=== PATIENT | female | born 1940 | race American Indian/Alaskan Native ===

== ENCOUNTER 2018-09-19 13:59 | Emergency (ER) | payer MEDICARE, OTHER ==
--- NOTE | 2018-09-19 14:13 | EDM.PDOC ---
ED HPI GENERAL MEDICAL PROBLEM - General Chief Complaint: ENT Problem Stated Complaint: SORES IN MOUTH Time Seen by Provider: 09/19/18 14:04 Source of Information: Reports: Patient History Limitations: Reports: No Limitations - History of Present Illness INITIAL COMMENTS - FREE TEXT/NARRATIVE: HISTORY AND PHYSICAL: History of present illness: Patient is a 78 old female who presents to the emergency room with complaints of oral sores. She states over the past 2 days she has experienced multiple sores along her tongue and bottom inner lip. She states she has had this in the past and received an oral mouthwash which did help "somewhat". She denies any fever, chills, chest pain, shortness of breath or cough. Denies any abdominal pain, nausea, vomiting, diarrhea or constipation. No rashes or open sores on the body. Review of systems: As per history of present illness and below otherwise all systems reviewed and negative. Past medical history: As per history of present illness and as reviewed below otherwise noncontributory. Surgical history: As per history of present illness and as reviewed below otherwise noncontributory. Social history: See social history for further information Family history: As per history of present illness and as reviewed below otherwise noncontributory. Physical exam: General: Well-developed and well-nourished 78 she'll female. Alert and oriented. Nontoxic appearing and in no acute distress. HEENT: Atraumatic, normocephalic, pupils equal and reactive bilaterally, negative for conjunctival pallor or scleral icterus, mucous membranes moist she does have small circular canker sore appearing lesions to the inner mouth and along the distal aspect of tongue, there are no lesions or open sores to the back of the throat, roof of the mouth or posterior tongue. TMs normal bilaterally, throat clear, neck supple, nontender, trachea midline. No drooling or trismus noted. No meningeal signs. No hot potato voice noted. Lungs: Clear to auscultation, breath sounds equal bilaterally, chest nontender. Heart: S1S2, regular rate and rhythm without overt murmur Abdomen: Soft, nondistended, nontender. Negative for masses or hepatosplenomegaly. Negative for costovertebral tenderness. Pelvis: Stable nontender. Genitourinary: Deferred. Rectal: Deferred. Skin: Intact, warm, dry. No lesions or rashes noted. Extremities: Atraumatic, moves all extremities per self without difficulty or deficits, negative for cords or calf pain. Neurovascular unremarkable. Neuro: Awake, alert, oriented. Cranial nerves II through XII unremarkable. Cerebellum unremarkable. Motor and sensory unremarkable throughout. Exam nonfocal. Diagnostics: None Therapeutics: NA Prescription: Chlorahexadin/Gluconate Rinse Miracle Mouthwash Acyclovir x 5 days Impression: Oral Canker Sores Plan: 1. Avoid any salty, sour or spicy foods that this can cause irritation and increased pain. 2. Please use the antibiotic rinse 3 times daily while having the oral lesions. You may use the miracle mouthwash for comfort, rinse and spit. 3. Please follow-up with your primary care provider on Saturday. Return to the ED as needed and as discussed. Definitive disposition and diagnosis as appropriate pending reevaluation and review of above. Oral/Mouth Pain Score (Numeric/FACES): 7 - Related Data Allergies Allergy/AdvReac Type Severity Reaction Status Date / Time amoxicillin [Amoxicillin] Allergy Swelling Verified 09/19/18 14:18 benzochlorozine Allergy Swollen Uncoded 09/19/18 14:18 Eyes Home Meds: Home Meds Spironolactone 50 mg PO DAILY 01/18/14 [History] Omeprazole 40 mg DAILY 10/11/14 [History] Aspirin [Adult Low Dose Aspirin EC] 81 mg PO DAILY 09/19/18 [History] Calcium Carbonate [Calcium] 1 tab DAILY 09/19/18 [History] Doxylamine Succinate [Unisom Sleep Aid] 50 mg PO DAILY 09/19/18 [History] Fluticasone/Vilanterol [Breo Ellipta 200-25 MCG Inhalation Kit] 1 inh BID [History] Krill/Om-3/DHA/EPA/Phospho/Ast [Megared [place]-3 Krill Oil Sfgl] 1 each PO DAILY 09/19/18 [History] Multivitamin [Multivitamins] 1 tab DAILY 09/19/18 [History] Tafluprost/Pf [Zioptan 0.0015% Eye Drops] 1 drop BEDTIME 09/19/18 [History] atorvaSTATin [Lipitor] 40 mg PO BEDTIME 09/19/18 [History] cycloSPORINE [Restasis] 1 drop BID 09/19/18 [History] ED ROS ENT - Review of Systems Review Of Systems: ROS reveals no pertinent complaints other than HPI. ED EXAM, ENT - Physical Exam Exam: See Below (See dictation) Course - Vital Signs Last Recorded V/S: Last Vital Signs Temp 96.0 F 09/19/18 14:16 Pulse 96 09/19/18 15:02 Resp 18 09/19/18 14:16 BP 114/78 09/19/18 14:16 Pulse Ox 96 09/19/18 15:02 Departure - Departure Time of Disposition: 16:48 Disposition: Home, Self-Care 01 Clinical Impression: Canethan nascimento oral - Discharge Information Instructions: Kleber Nascimento Referrals: Chioam Contreras NP [Primary Care Provider] - Forms: ED Department Discharge Additional Instructions: The following information is given to patients seen in the emergency department who are being discharged to home. This information is to outline your options for follow-up care. We provide all patients seen in our emergency department with a follow-up referral. The need for follow-up, as well as the timing and circumstances, are variable depending upon the specifics of your emergency department visit. If you don't have a primary care physician on staff, we will provide you with a referral. We always advise you to contact your personal physician following an emergency department visit to inform them of the circumstance of the visit and for follow-up with them and/or the need for any referrals to a consulting specialist. The emergency department will also refer you to a specialist when appropriate. This referral assures that you have the opportunity for follow-up care with a specialist. All of these measure are taken in an effort to provide you with optimal care, which includes your follow-up. Under all circumstances we always encourage you to contact your private physician who remains a resource for coordinating your care. When calling for follow-up care, please make the office aware that this follow-up is from your recent emergency room visit. If for any reason you are refused follow-up, please contact the [facility] Emergency Department at and asked to speak to the emergency department charge nurse. [facility] [address] [place] [address] [id number] [place] [address] [place] [address] 1. Avoid any salty, sour or spicy foods that this can cause irritation and increased pain. 2. Please use the antibiotic rinse 3 times daily while having the oral lesions. You may use the miracle mouthwash for comfort, rinse and spit. 3. Please follow-up with your primary care provider on Saturday. Return to the ED as needed and as discussed.
[2018-09-19 14:18] VITALS: BP 114/78
== END 2018-09-19 15:13 | disposition home or self-care (01) ==
LOC: MW.ED 13:59
DX: B37.0 Candidal stomatitis (principal); Z88.0 Allergy status to penicillin; Z88.8 Allergy status to other drugs, medicaments and biological substances; Z79.899 Other long term (current) drug therapy; Z79.82 Long term (current) use of aspirin
CPT/HCPCS: 99282

== ENCOUNTER 2018-12-08 07:16 | Inpatient (IN) | payer MEDICARE, OTHER ==
[~2018-12-08 07:16] MED LIST: Acetaminophen 1,000 MG in Premix Bag 1 BAG IV SCH; Famotidine 20 MG/2 ML SDV IVPUSH SCH; Ketorolac 15 MG/ML SDV IVPUSH SCH; Scopolamine 1.5 MG Transdermal Patch TRDERM SCH
--- NOTE | 2018-12-08 07:32 | PCM.PREANE ---
Preanesthetic Assessment - Anesthesia/Transfusion/Family Hx Anesthesia History: Prior Anesthesia Without Reaction Family History of Anesthesia Reaction: No Transfusion History: No Prior Transfusion(s) - Review of Systems General: No Symptoms Pulmonary: No Symptoms Cardiovascular: No Symptoms Gastrointestinal: No Symptoms Neurological: No Symptoms Other: Reports: None - Physical Assessment NPO Status Date: 12/07/18 Height: 5 ft 1 in Weight: 80.739 kg ASA Class: 2 Mental Status: Alert & Oriented x3 Dentition: Reports: Normal Dentition ROM/Head Extension: Full Lungs: Clear to Auscultation, Normal Respiratory Effort Cardiovascular: Regular Rate, Regular Rhythm - Allergies Allergies/Adverse Reactions: Allergies Allergy/AdvReac Type Severity Reaction Status Date / Time amoxicillin [Amoxicillin] Allergy Swelling Verified 12/05/18 09:24 pregabalin [From Lyrica] Allergy Cannot Verified 12/05/18 09:24 Remember benzochlorozine Allergy Swollen Uncoded 12/05/18 09:24 Eyes - Blood Blood Available: No - Anesthesia Plan Pre-Op Medication Ordered: Other (aceta, clinda, pepcid, scop, toradol -- all from surgeon) - Acknowledgements Pt an Appropriate Candidate for the Planned Anesthesia: Yes Alternatives and Risks of Anesthesia Discussed w Pt/Guardian: Yes Pt/Guardian Understands and Agrees with Anesthesia Plan: Yes Additional Comments: PMH: gonzalo, cad s/p stent, copd, htn, mo PLAN: PreAnesthesia Questionnaire HEENT History: Reports: Allergic Rhinitis, Cataract Cardiovascular History: Reports: High Cholesterol Respiratory History: Reports: Asthma, PE Other Respiratory History: states PE 5 years ago- took anticoagulants Gastrointestinal History: Reports: GERD 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: Musculoskeletal History: Reports: Back Pain, Chronic, Fracture, Osteoarthritis Other Musculoskeletal History: hx of fx arm Endocrine/Metabolic History: Reports: Obesity/BMI 30+ - Past Surgical History Head Surgeries/Procedures: Reports: None HEENT Surgical History: Reports: Cataract Surgery, Naso-Sinus Surgery GI Surgical History: Reports: Colonoscopy Female Surgical History: Reports: Breast Biopsy, Hysterectomy, Salpingo- Oophorectomy Neurological Surgical History: Reports: C-Spine, Spinal Fusion Other Neurological Surgeries/Procedures: fusion of C3-4-5 (no hardware) Musculoskeletal Surgical History: Reports: Carpal Tunnel, Knee Replacement, Other (See Below) Other Musculoskeletal Surgeries/Procedures:: excision of forehead lesion, closed reduction fx arm as a child - SUBSTANCE USE Smoking Status *Q: Former Smoker Tobacco Use Within Last Twelve Months: No Recreational Drug Use History: No - HOME MEDS Home Medications: Home Meds Spironolactone 50 mg PO DAILY 01/18/14 [History] Omeprazole 20 mg PO DAILY PRN 10/11/14 [History] Aspirin [Adult Low Dose Aspirin EC] 81 mg PO DAILY 09/19/18 [History] Multivitamin [Multivitamins] 1 tab PO DAILY 09/19/18 [History] Tafluprost/Pf [Zioptan 0.0015% Eye Drops] 1 drop EYEBOTH BEDTIME 09/19/18 [ History] atorvaSTATin [Lipitor] 40 mg PO BEDTIME 09/19/18 [History] cycloSPORINE [Restasis] 1 drop EYEBOTH BID 09/19/18 [History] Acetaminophen [Tylenol Arthritis] 650 mg PO Q4H PRN 12/05/18 [History] Calcium Carbonate/Vitamin D3 [Calcium 600-Vit D3 800 Tab] 1 tab PO DAILY [History] Doxylamine Succinate [Unisom Sleep Aid] 25 mg PO BEDTIME PRN 12/05/18 [History] Fluticasone/Vilanterol [Breo Ellipta 200-25 Mcg INH] 1 puff INH DAILY 12/05/18 [ History] Mirabegron [Myrbetriq] 50 mg PO QAM 12/05/18 [History] Multivitamin with Minerals [Hair, Skin and Nails] 1 tab PO DAILY 12/05/18 [ History] traMADol [Ultram] 50 mg PO Q8H PRN 12/05/18 [History] - CURRENT (IN HOUSE) MEDS Current Meds: Current Medications Famotidine (Pepcid) 40 mg IVPUSH ONARRIVE [facility] Acetaminophen 1,000 mg/ Premix 100 mls @ 400 mls/hr IV ONARRIVE [facility] Ropivacaine 49.25 ml/Ketorolac Tromethamine 30 mg/Epinephrine HCl 0.5 mg/ Clonidine HCl 80 mcg/ Sodium Chloride 75 mls @ 50 mls/sec INJECT ASDIRECTED [facility] Lactated Ringer's (Ringers, Lactated) 1,000 mls @ 100 mls/hr IV ASDIRECTED [facility] Tranexamic Acid 2,000 mg/ (Sodium Chloride) 120 mls @ 600 mls/hr IV ASDIRECTED [facility] Clindamycin Phosphate 600 mg/ (Premix) 50 mls @ 150 mls/hr IV ONCALL [facility] Ketorolac Tromethamine (Toradol) 15 mg IVPUSH ONARRIVE [facility] Scopolamine (Transderm-Scop) 1.5 mg TRDERM ONARRIVE [facility]
[2018-12-08] MEDS ORDERED: fentaNYL 100 MCG/2 ML SDV ONE (07:40)
[2018-12-08] MEDS ORDERED: Propofol 200 MG/20 ML SDV ONE (07:40)
[2018-12-08] MEDS ORDERED: Midazolam 1 MG/ML 2 ML SDV ONE (07:40)
[2018-12-08] MEDS ORDERED: Clindamycin Phosphate in D5W 600 MG in Premix Bag 1 BAG IV SCH ×2 (08:00)
[2018-12-08] MEDS ORDERED: Clindamycin Phosphate 900 MG/6 ML SDV IV SCH (08:00)
[2018-12-08] MEDS ORDERED: Ropivacaine 49.25 ML, Ketorolac 30 MG, EPINEPHrine 0.5 MG, cloNIDine 80 MCG in Sodium C... INJECT SCH (08:00)
[2018-12-08] MEDS ORDERED: Tranexamic Acid 2,000 MG in Sodium Chloride 0.9% 100 ML IV SCH (08:00)
[2018-12-08] MEDS: Lactated Ringers 1,000 ML IV SCH ×2 (08:29→22:53)
--- NOTE | 2018-12-08 08:33 | PCM.PREANE ---
Preanesthetic Assessment - Anesthesia/Transfusion/Family Hx Anesthesia History: Prior Anesthesia Without Reaction Family History of Anesthesia Reaction: No Transfusion History: No Prior Transfusion(s) - Review of Systems General: No Symptoms Pulmonary: No Symptoms Cardiovascular: No Symptoms Gastrointestinal: No Symptoms Neurological: No Symptoms Other: Reports: None - Physical Assessment NPO Status Date: 12/07/18 Height: 5 ft 1 in Weight: 80.739 kg ASA Class: 3 Mental Status: Alert & Oriented x3 Airway Class: Mallampati = 2 Dentition: Reports: Partial ROM/Head Extension: Full Lungs: Clear to Auscultation, Normal Respiratory Effort Cardiovascular: Regular Rate, Regular Rhythm - Allergies Allergies/Adverse Reactions: Allergies Allergy/AdvReac Type Severity Reaction Status Date / Time amoxicillin [Amoxicillin] Allergy Swelling Verified 12/05/18 09:24 pregabalin [From Lyrica] Allergy Cannot Verified 12/05/18 09:24 Remember benzochlorozine Allergy Swollen Uncoded 12/05/18 09:24 Eyes - Blood Blood Available: No - Anesthesia Plan Pre-Op Medication Ordered: Other (per surgeon) - Acknowledgements Anesthesia Type Planned: Spinal Pt an Appropriate Candidate for the Planned Anesthesia: Yes Alternatives and Risks of Anesthesia Discussed w Pt/Guardian: Yes Pt/Guardian Understands and Agrees with Anesthesia Plan: Yes Additional Comments: PMH: glaucoma, asthma, hld, ckd3 DENIES: htn, angina or CAD, knowledge of hypercalcemia or hx of parathyroid surgery PLAN: spinal with sedation PreAnesthesia Questionnaire HEENT History: Reports: Allergic Rhinitis, Cataract Cardiovascular History: Reports: High Cholesterol Respiratory History: Reports: Asthma, PE Other Respiratory History: states PE 5 years ago- took anticoagulants Gastrointestinal History: Reports: GERD 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: Musculoskeletal History: Reports: Back Pain, Chronic, Fracture, Osteoarthritis Other Musculoskeletal History: hx of fx arm Endocrine/Metabolic History: Reports: Obesity/BMI 30+ - Past Surgical History Head Surgeries/Procedures: Reports: None HEENT Surgical History: Reports: Cataract Surgery, Naso-Sinus Surgery GI Surgical History: Reports: Colonoscopy Female Surgical History: Reports: Breast Biopsy, Hysterectomy, Salpingo- Oophorectomy Neurological Surgical History: Reports: C-Spine, Spinal Fusion Other Neurological Surgeries/Procedures: fusion of C3-4-5 (no hardware) Musculoskeletal Surgical History: Reports: Carpal Tunnel, Knee Replacement, Other (See Below) Other Musculoskeletal Surgeries/Procedures:: excision of forehead lesion, closed reduction fx arm as a child - SUBSTANCE USE Smoking Status *Q: Former Smoker Tobacco Use Within Last Twelve Months: No Recreational Drug Use History: No - HOME MEDS Home Medications: Home Meds Spironolactone 50 mg PO DAILY 01/18/14 [History] Omeprazole 20 mg PO DAILY PRN 10/11/14 [History] Aspirin [Adult Low Dose Aspirin EC] 81 mg PO DAILY 09/19/18 [History] Multivitamin [Multivitamins] 1 tab PO DAILY 09/19/18 [History] Tafluprost/Pf [Zioptan 0.0015% Eye Drops] 1 drop EYEBOTH BEDTIME 09/19/18 [ History] atorvaSTATin [Lipitor] 40 mg PO BEDTIME 09/19/18 [History] cycloSPORINE [Restasis] 1 drop EYEBOTH BID 09/19/18 [History] Acetaminophen [Tylenol Arthritis] 650 mg PO Q4H PRN 12/05/18 [History] Calcium Carbonate/Vitamin D3 [Calcium 600-Vit D3 800 Tab] 1 tab PO DAILY [History] Doxylamine Succinate [Unisom Sleep Aid] 25 mg PO BEDTIME PRN 12/05/18 [History] Fluticasone/Vilanterol [Breo Ellipta 200-25 Mcg INH] 1 puff INH DAILY 12/05/18 [ History] Mirabegron [Myrbetriq] 50 mg PO QAM 12/05/18 [History] Multivitamin with Minerals [Hair, Skin and Nails] 1 tab PO DAILY 12/05/18 [ History] traMADol [Ultram] 50 mg PO Q8H PRN 12/05/18 [History] - CURRENT (IN HOUSE) MEDS Current Meds: Current Medications Famotidine (Pepcid) 40 mg IVPUSH ONARRIVE [facility] Last Admin: 12/08/18 08:27 Dose: 40 mg Acetaminophen 1,000 mg/ Premix 100 mls @ 400 mls/hr IV ONARRIVE [facility] Last Admin: 12/08/18 08:27 Dose: 400 mls/hr Ropivacaine 49.25 ml/Ketorolac Tromethamine 30 mg/Epinephrine HCl 0.5 mg/ Clonidine HCl 80 mcg/ Sodium Chloride 75 mls @ 50 mls/sec INJECT ASDIRECTED [facility] Lactated Ringer's (Ringers, Lactated) 1,000 mls @ 100 mls/hr IV ASDIRECTED [facility] Last Admin: 12/08/18 08:29 Dose: 100 mls/hr Tranexamic Acid 2,000 mg/ (Sodium Chloride) 120 mls @ 600 mls/hr IV ASDIRECTED [facility] Clindamycin Phosphate 600 mg/ (Premix) 50 mls @ 150 mls/hr IV ONCALL [facility] Ketorolac Tromethamine (Toradol) 15 mg IVPUSH ONARRIVE [facility] Last Admin: 12/08/18 08:28 Dose: 15 mg Scopolamine (Transderm-Scop) 1.5 mg TRDERM ONARRIVE [facility] Last Admin: 12/08/18 08:26 Dose: 1.5 mg Discontinued Medications Fentanyl (Sublimaze) Confirm Administered Dose 100 mcg .ROUTE .STK-MED ONE Stop: 12/08/18 07:41 Lidocaine HCl (Xylocaine-Mpf 1%) Confirm Administered Dose 5 mls @ as directed .ROUTE .STK-MED ONE Stop: 12/08/18 07:41 Midazolam HCl (Versed 1 Mg/Ml) Confirm Administered Dose 2 mg .ROUTE .STK-MED ONE Stop: 12/08/18 07:41 Propofol (Diprivan 20 Ml) Confirm Administered Dose 600 mg .ROUTE .STK-MED ONE Stop: 12/08/18 07:41
[2018-12-08] MEDS ORDERED: Ondansetron 4 MG/2 ML SDV IVPUSH PRN (11:44)
[2018-12-08] MEDS ORDERED: Sodium Chloride 0.9% 2.5 ML Syringe FLUSH PRN (11:44)
[2018-12-08] MEDS ORDERED: Docusate Sodium 100 MG Cap PO PRN (11:44)
[2018-12-08] MEDS ORDERED: Bisacodyl 10 MG Supp RECTAL PRN (11:44)
[2018-12-08] MEDS ORDERED: Morphine PF 30 MG/30 ML PCA Vial IV PRN (11:44)
[2018-12-08] MEDS ORDERED: Sodium Chloride 0.9% 10 ML Syringe FLUSH PRN (11:44)
[2018-12-08] MEDS ORDERED: Aluminum Hydroxide/Magnesium Hydroxide/Simethicone Susp 30 ML Cup PO PRN (11:44)
[2018-12-08] MEDS ORDERED: diphenhydrAMINE 25 MG Cap PO PRN (11:44)
[2018-12-08] MEDS ORDERED: Omeprazole 20 MG Cap.CR PO PRN (11:47)
[2018-12-08] MEDS ORDERED: Cetirizine 10 MG Tab PO PRN (11:47)
[2018-12-08] MEDS ORDERED: DOXYLAMINE SUCCINATE 25 MG PO PRN (11:47)
--- NOTE | 2018-12-08 12:05 | PCM.POSTAN ---
POST ANESTHESIA ASSESSMENT - MENTAL STATUS Mental Status: Alert, Oriented - RESPIRATORY Respiratory Status: Respiratory Rate WNL, Airway Patent, O2 Saturation Stable - CARDIOVASCULAR CV Status: Pulse Rate WNL, Blood Pressure Stable - GASTROINTESTINAL GI Status: No Symptoms - POST OP HYDRATION Hydration Status: Adequate & Stable
--- NOTE | 2018-12-08 12:18 | PCM.OPNOTE ---
- General Post-Op/Procedure Note Date of Surgery/Procedure: 12/08/18 Operative Procedure(s): L TKA Post-Op Diagnosis: DJD left knee Anesthesia Technique: Moderate Sedation, Spinal Primary Surgeon: Carmen Verdugo Group Cio: Cornelia Green Group Cio: Pamela Clayton EBL in mLs: 50 Condition: Good Free Text/Narrative:: tt=39 min #[id number]
--- NOTE | 2018-12-08 12:46 | PCM.POSTAN ---
POST ANESTHESIA ASSESSMENT - MENTAL STATUS Mental Status: Alert, Oriented - VITAL SIGNS Pulse Rate: 68 SaO2: 92 (RA) Resp Rate: 16 Blood Pressure: 133/50 - RESPIRATORY Respiratory Status: Respiratory Rate WNL, Airway Patent, O2 Saturation Stable - CARDIOVASCULAR CV Status: Pulse Rate WNL, Blood Pressure Stable - GASTROINTESTINAL GI Status: No Symptoms - PAIN Pain Score: 0 - POST OP HYDRATION Hydration Status: Adequate & Stable - OBSERVATIONS Free Text/Narrative:: Patient arrived in PACU 1203.
[2018-12-08] MEDS: Acetaminophen/HYDROcodone 325-10 MG Tab PO PRN ×2 (15:18→23:08)
--- NOTE | 2018-12-08 16:32 | OR ---
SURGEON: Carmen Verdugo MD DATE OF PROCEDURE: 12/08/2018 PREOPERATIVE DIAGNOSIS: Degenerative joint disease, left knee, tricompartmental. POSTOPERATIVE DIAGNOSIS: Degenerative joint disease, left knee, tricompartmental. PROCEDURE PERFORMED: Left total knee arthroplasty using patient specific instrumentation. COMPRESSED AIR PILE DRIVER OPERATOR: Cornelia Green PA-C, and RICHARD Shane. ANESTHESIA: Spinal with sedation. ESTIMATED BLOOD LOSS: 50 mL. TOURNIQUET TIME: 39 minutes. COMPLICATIONS: None. DVT PROPHYLAXIS: PAS boot and VIOLETTA hose to the nonoperative leg. IMPLANTS USED: Sondra Persona femoral component size 6 standard (LPS), tibial component size D, 12 mm all-polyethylene articular surface, and 32 mm all-polyethylene patella. 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 The medial femoral condyle did show complete eburnation of the bone. Osteophyte formation was also noted. No significant synovitis was found. Overall, bone quality was normal. BRIEF HISTORY: Kateryna is a 78-year-old female who has had complaint of progressive left knee pain. She had failed conservative treatment. Due to her lack of response to conservative treatment, I did recommend surgical intervention. The risks and goals of the procedure were discussed with the patient and were documented preoperatively. She agreed to proceed. DESCRIPTION OF PROCEDURE: The patient was properly identified and brought to the operating room. The patient was then transferred from the operating room cart and placed on the operating table in a supine position. Anesthesia was administered by the anesthesia staff. After adequate anesthesia was obtained, a well-padded tourniquet was applied to the surgical lower extremity. Mcdaniel catheter was placed. The lower extremity was then prepped in standard fashion using ChloraPrep solution. It was then sterilely draped. A time-out was performed to ensure correct site and procedure. Preoperative antibiotics were given along with one gram tranexamic acid IV. The surgical site had been marked preoperatively. An Esmarch was used to exsanguinate the right lower extremity and the tourniquet was inflated. An incision was made over the anterior aspect of the knee. The subcutaneous tissues were dissected down to the level of the fascia. A medial parapatellar approach to the knee was made. A portion of the infrapatellar fat pad was then excised. The distal femur was then exposed. The step reamer was used to gain access to the intramedullary canal. This was placed in 6 degrees of valgus. Pins were placed. The distal femoral cutting block was placed and the distal femoral cut was made. Instrumentation was then removed. The femur was then sized. Both Whitesides' line and the epicondylar axis were then marked with electrocautery. The 4-in-1 cutting block was placed. This was placed in a slightly externally rotated position, which corresponded well with the previously drawn lines. The cutting guide was then pinned into position. An Chava wing guide was used to check the depth of resection of our anterior condylar cut and it was felt that no notching would occur. The anterior condylar cut was then made followed by the posterior condylar cut. Both the posterior chamfer and anterior chamfer cuts were then made. The cutting block was then removed along with the excess bony remnants. We then turned our attention to the tibia. The anterior cruciate ligament and posterior cruciate ligament were released and a posterior cruciate ligament retractor was placed to allow the tibia to be pulled anteriorly. The tibial extra-medullary guide was then positioned. We chose to take approximately 2 mm off the lowest side. The proximal tibia cutting guide was then placed and screwed into position. The proximal tibial resection was then made with care being taken to protect the patellar tendon. The bony resection was then removed. The remainder of the medial and lateral meniscus were then excised. Care was taken to protect the popliteus tendon. The tibia was then sized to the appropriate size. The distal femur was then elevated. The posterior capsule was stripped off the distal femur both medially and laterally. The posterior capsule along with the medial and lateral gutters were then injected with a standard mixture consisting of clonidine, epinephrine, Toradol, and ropivacaine, unless any allergies were found preoperatively. The femoral component was then placed onto the distal femur in a slightly lateral position. This fit the femur well. A box cut was then made without difficulty. This was then removed. The tibial trial along with the polyethylene liner was then placed. The knee came easily into full extension and was stable to varus and valgus stressing both in full extension and flexion. Any additional releases were performed at this time. We then returned our attention to the patella. The patella was everted and towel clamps were used to hold the patella in position. It was resected to a 15 millimeter thickness. It was then sized to the appropriate size. It was prepared in the usual fashion after placing the predetermined size clamps. This was placed in a slightly superior and medial position. The clamp was then removed. The patellar trial button was placed. The knee was taken through a range of motion using the no-touch technique. The patella tracked centrally. A drop clifton was then placed to check alignment. All instruments were then removed from the knee. The tibial sizer was then placed on the tibia. The tibia was prepared in the usual fashion using the reamer and broach. This was then removed. All bony surfaces were copiously irrigated with Pulsavac solution. They were then suctioned dry. Cement was prepared on the back table in the usual manner. Antibiotic impregnated cement was used if the patient was diabetic. Once it was prepared, the bone ends were again suctioned dry. The tibia was cemented into place first. This was malleted into position. Excess cement was then cleared. The femur was then placed in a similar manner. We placed the polyethylene trial into place and the knee was brought into full extension. An axial load was placed while keeping the knee in full extension. The patella button was also cemented into position and the clamp was used to hold this in place as the cement was allowed to cure. The wound was copiously irrigated with saline using a Pulsavac dinkey locomotive operator. Following this, 1 gram of tranexamic acid was applied topically to the wound during the curing process. After we had adequate curing of the cement, the knee was again taken through a range of motion. The size of the polyethylene was then determined. The polyethylene trial was then removed. The tibial tray was suctioned to make sure there was no remaining soft tissue or cement. Excess cement was cleared from around the edges of the prosthesis as well. The tourniquet was then deflated. We were able to observe for any excess bleeding and none was noted. Electrocautery was used to maintain hemostasis. An additional gram of tranexamic acid was given IV. The retractors were again placed and the predetermined polyethylene was then placed. This was locked into position without difficulty. The knee was again taken through a range of motion with no change from the prior exam. The fascial layer was closed with Number One Vicryl. The subcutaneous tissues were closed with 2-0 Vicryl. The skin was closed with vickie. Xeroform gauze was placed over the wound and a bulky dressing was applied. The patient was then awakened from anesthesia and transferred back to the operating room cart. They were brought to the recovery room in stable condition. All needle and sponge counts were correct. TERE HAMM /[id number]
--- NOTE | 2018-12-08 17:02 | CR ---
EXAMINATION: Left knee HISTORY: Arthroplasty COMPARISON: 09/11/2018 TECHNIQUE: 2 views FINDINGS/IMPRESSION: Left total knee hardware is demonstrated in good position and alignment. Postoperative soft tissue changes are noted.
[2018-12-08] MEDS: Ketorolac 15 MG/ML SDV IVPUSH SCH ×2 (18:01→23:07)
[2018-12-08] MEDS: Clindamycin Phosphate in D5W 600 MG in Premix Bag 50 BAG IV SCH ×2 (18:08)
[2018-12-08] MEDS: atorvaSTATin 40 MG Tab PO SCH (20:08)
[2018-12-08] MEDS: Cyclosporine 1 DROP EYEBOTH SCH (23:14)
[2018-12-08] MEDS: Tafluprost/Pf [Zioptan 0.0015% Eye Drops] 1 DROP EYEBOTH SCH (23:14)
[2018-12-09] MEDS: Acetaminophen/HYDROcodone 325-10 MG Tab PO PRN ×3 (03:23→14:06)
[2018-12-09] MEDS: Clindamycin Phosphate in D5W 600 MG in Premix Bag 50 BAG IV SCH ×2 (03:24)
--- NOTE | 2018-12-09 08:21 | PCM.SURGPN ---
<Cornelia Green R - Last Filed: 12/09/18 08:19> - General Info Date of Service: 12/09/18 Date of Surgery/Procedure: 12/08/18 POD#: 1 Functional Status: Reports: Pain Controlled, Tolerating Diet, Ambulating - Review of Systems General: Reports: No Symptoms Pulmonary: Reports: No Symptoms Cardiovascular: Reports: No Symptoms Gastrointestinal: Reports: No Symptoms Musculoskeletal: Reports: Leg Pain Systems Review Comment:: pt up to chair for breakfast tolerating PO intake well pain controlled with pain medications has been OOB ambulating no specific concerns today - Patient Data Vitals - Most Recent: Last Vital Signs Temp 97.2 F 12/09/18 03:26 Pulse 66 12/09/18 03:26 Resp 18 12/09/18 03:26 BP 127/73 12/09/18 03:26 Pulse Ox 95 12/09/18 03:26 Weight - Most Recent: 80.739 kg I&O - Last 24 Hours: Intake & Output 12/08/18 12/09/18 12/09/18 22:59 06:59 14:59 Intake Total 1117 1459 Output Total 300 375 Balance 817 1084 Lab Results Last 24 Hrs: Laboratory Results - last 24 hr 12/08/18 12/09/18 Range/Units 08:57 05:20 Hgb 12.2 (12.0-16.0) g/dL Hct 37.3 (36.0-46.0) % Blood Type O POSITIVE Antibody Screen NEGATIVE Med Orders - Current: Current Medications Hydrocodone Bitart/Acetaminophen (Freedom 325-10 Mg) 1 - 2 tab PO Q4H PRN PRN Reason: Pain Last Admin: 12/09/18 07:43 Dose: 2 tab Al Hydroxide/Mg Hydroxide (Mag-Al Plus) 30 ml PO Q4H PRN PRN Reason: Indigestion Aspirin (Aspirin) 325 mg PO BID ETELVINA Atorvastatin Calcium (Lipitor) 40 mg PO BEDTIME EETLVINA Last Admin: 12/08/18 20:08 Dose: Not Given Bisacodyl (Dulcolax) 10 mg RECTAL DAILY PRN PRN Reason: Constipation Celecoxib (Celebrex) 200 mg PO BID ETELVINA Cetirizine HCl (Zyrtec) 10 mg PO DAILY PRN PRN Reason: Allergies Diphenhydramine HCl (Benadryl) 25 - 50 mg PO Q6H PRN PRN Reason: Itching Docusate Sodium (Colace) 100 mg PO BID PRN PRN Reason: Constipation Famotidine (Pepcid) 40 mg IVPUSH ONARRIVE [facility] Last Admin: 12/08/18 08:27 Dose: 40 mg Famotidine (Pepcid) 40 mg PO DAILY [facility] Acetaminophen 1,000 mg/ Premix 100 mls @ 400 mls/hr IV ONARRIVE [facility] Last Admin: 12/08/18 08:27 Dose: 400 mls/hr Ropivacaine 49.25 ml/Ketorolac Tromethamine 30 mg/Epinephrine HCl 0.5 mg/ Clonidine HCl 80 mcg/ Sodium Chloride 75 mls @ 50 mls/sec INJECT ASDIRECTED [facility] Lactated Ringer's (Ringers, Lactated) 1,000 mls @ 100 mls/hr IV ASDIRECTED [facility] Last Admin: 12/08/18 22:53 Dose: 100 mls/hr Tranexamic Acid 2,000 mg/ (Sodium Chloride) 120 mls @ 600 mls/hr IV ASDIRECTED [facility] Clindamycin Phosphate 600 mg/ (Premix) 50 mls @ 150 mls/hr IV ONCALL [facility] Last Admin: 12/08/18 09:24 Dose: 150 mls/hr Ketorolac Tromethamine (Toradol) 15 mg IVPUSH ONARRIVE [facility] Last Admin: 12/08/18 08:28 Dose: 15 mg Morphine Sulfate (Morphine Sulfate) 1 - 3 mg IV Q3H PRN PRN Reason: Pain Multivitamins/Minerals/Vitamin C (Tab-A-Jimbo) 1 tab PO DAILY [facility] Omeprazole (Omeprazole) 40 mg PO DAILY PRN PRN Reason: Heartburn Ondansetron HCl (Zofran) 4 mg IVPUSH Q6H PRN PRN Reason: Nausea/Vomiting Doxylamine Succinate (25 Mg) 1 each PO BEDTIME PRN PRN Reason: Insomnia Cyclosporine 1 Drop 1 each EYEBOTH BID [facility] Last Admin: 12/08/18 23:14 Dose: 1 each Tafluprost/Pf [ Zioptan 0.0015% Eye Drops] 1 Drop 1 each EYEBOTH BEDTIME [facility] Last Admin: 12/08/18 23:14 Dose: 1 each Fluticasone/ (Vilanterol 1 Puff) 1 each INH DAILY [facility] Mirabegron [ (Myrbetriq] 50 Mg) 1 each PO QAM ETELVINA Polyethylene Glycol (Miralax) 17 gm PO DAILY [facility] Scopolamine (Transderm-Scop) 1.5 mg TRDERM ONARRIVE [facility] Last Admin: 12/08/18 08:26 Dose: 1.5 mg Sodium Chloride (Saline Flush) 10 ml FLUSH ASDIRECTED PRN PRN Reason: Keep Vein Open Sodium Chloride (Saline Flush) 2.5 ml FLUSH ASDIRECTED PRN PRN Reason: Keep Vein Open Spironolactone (Aldactone) 50 mg PO DAILY [facility] Discontinued Medications Fentanyl (Sublimaze) Confirm Administered Dose 100 mcg .ROUTE .STK-MED ONE Stop: 12/08/18 07:41 Lidocaine HCl (Xylocaine-Mpf 1%) Confirm Administered Dose 5 mls @ as directed .ROUTE .STK-MED ONE Stop: 12/08/18 07:41 Clindamycin Phosphate 600 mg/ (Premix) 50 mls @ 100 mls/hr IV Q8H [facility] Stop: 12/09/18 02:59 Last Admin: 12/09/18 03:24 Dose: 100 mls/hr Ketorolac Tromethamine (Toradol) 15 mg IVPUSH Q6H ETELVINA Stop: 12/09/18 05:00 Last Admin: 12/08/18 23:07 Dose: 15 mg Midazolam HCl (Versed 1 Mg/Ml) Confirm Administered Dose 2 mg .ROUTE .STK-MED ONE Stop: 12/08/18 07:41 Morphine Sulfate (Morphine Asphalt Paver Operator 30 Mg In 30 Ml) 30 mg IV ASDIRECTED PRN; Protocol PRN Reason: Pain Stop: 12/09/18 06:00 Last Admin: 12/08/18 12:26 Dose: 30 mg Propofol (Diprivan 20 Ml) Confirm Administered Dose 600 mg .ROUTE .STK-MED ONE Stop: 12/08/18 07:41 Tranexamic Acid (Cyklokapron) Confirm Administered Dose 2,000 mg .ROUTE .STK- MED ONE Stop: 12/08/18 16:31 - Exam Wound/Incisions: Dressing Dry and Intact General: Alert, Oriented Cardiovascular: Regular Rate, Regular Rhythm Extremities: Other (exam LLE - at/ehl/gastroc 5/5, dp 2+, sensation intact distally) Physical Findings Comment:: vss, afeb uo 940mL hgb 12.2 - Problem List Review Problem List Initiated/Reviewed/Updated: Yes - My Orders Last 24 Hours: Active Orders 24 hr Category Date Time Status Communication Order [RC] PRN Care 12/08/18 11:44 Active Communication Order [RC] PRN Care 12/08/18 11:44 Active Insert Urinary Catheter [OM.PC] Q24H Care 12/08/18 08:00 Ordered Neurovascular Check [RC] Q2HR Care 12/08/18 11:44 Active Notify Provider Vital Signs [RC] ASDIRECTED Care 12/08/18 11:44 Active RT Incentive Spirometry [RC] Q1HWA Care 12/08/18 11:44 Active Urinary Catheter Assessment [RC] ASDIRECTED Care 12/08/18 08:00 Active Urinary Catheter Removal [RC] ASDIRECTED Care 12/09/18 06:00 Active Vital Signs [RC] PER UNIT ROUTINE Care 12/08/18 11:44 Active Wound Care [RC] DAILY Care 12/08/18 11:44 Active PT Evaluation and Treatment [CONS] Routine Cons 12/08/18 11:44 Active HEMOGLOBIN/HEMATOCRIT,HH [HEME] DAILY Lab 12/10/18 06:00 Ordered Acetaminophen/HYDROcodone [Freedom 325-10 MG] Med 12/08/18 11:46 Active 1 - 2 tab PO Q4H PRN Alum Hydrox/Mag Hydrox/Simeth [Mag-Al Plus] Med 12/08/18 11:44 Active 30 ml PO Q4H PRN Aspirin Med 12/09/18 09:00 Active 325 mg PO BID Bisacodyl [Dulcolax] Med 12/08/18 11:44 Active 10 mg RECTAL DAILY PRN Celecoxib [CeleBREX] Med 12/09/18 09:00 Active 200 mg PO BID Cetirizine [ZyrTEC] Med 12/08/18 11:47 Active 10 mg PO DAILY PRN Clindamycin Phosphate in D5W [Cleocin in D5W] 600 mg Med 12/08/18 08:00 Active Premix Bag 1 bag IV ONCALL Docusate Sodium [Colace] Med 12/08/18 11:44 Active 100 mg PO BID PRN Famotidine [Pepcid] Med 12/09/18 09:00 Active 40 mg PO DAILY Morphine Sulfate Med 12/09/18 06:00 Active 1 - 3 mg IV Q3H PRN Multivitamins [Tab-A-Jimbo] Med 12/09/18 09:00 Active 1 tab PO DAILY Omeprazole Med 12/08/18 11:47 Active 40 mg PO DAILY PRN Ondansetron [Zofran] Med 12/08/18 11:44 Active 4 mg IVPUSH Q6H PRN Patient's Own Medication [Ptom] Med 12/08/18 21:00 Active 1 each EYEBOTH BEDTIME Patient's Own Medication [Ptom] Med 12/08/18 21:00 Active 1 each EYEBOTH BID Patient's Own Medication [Ptom] Med 12/09/18 09:00 Active 1 each INH DAILY Patient's Own Medication [Ptom] Med 12/08/18 11:47 Active 1 each PO BEDTIME PRN Patient's Own Medication [Ptom] Med 12/09/18 09:00 Active 1 each PO QAM Polyethylene Glycol 3350 [MiraLAX] Med 12/09/18 09:00 Active 17 gm PO DAILY Ropivacaine [Naropin 0.2%] 49.25 ml Med 12/08/18 08:00 Active Ketorolac [Toradol] 30 mg EPINEPHrine [Adrenalin] 0.5 mg cloNIDine [Duraclon] 80 mcg Sodium Chloride 0.9% [Normal Saline] 23.45 ml INJECT ASDIRECTED Sodium Chloride 0.9% [Saline Flush] Med 12/08/18 11:44 Active 10 ml FLUSH ASDIRECTED PRN Sodium Chloride 0.9% [Saline Flush] Med 12/08/18 11:44 Active 2.5 ml FLUSH ASDIRECTED PRN Spironolactone [Aldactone] Med 12/09/18 09:00 Active 50 mg PO DAILY Tranexamic Acid [Cyklokapron] 2,000 mg Med 12/08/18 08:00 Active Sodium Chloride 0.9% [Normal Saline] 100 ml IV ASDIRECTED atorvaSTATin [Lipitor] Med 12/08/18 21:00 Active 40 mg PO BEDTIME diphenhydrAMINE [Benadryl] Med 12/08/18 11:44 Active 25 - 50 mg PO Q6H PRN Convert IV to Saline Lock [OM.PC] Routine Oth 12/09/18 06:00 Ordered Ice Therapy [OM.PC] Routine Oth 12/08/18 11:44 Ordered Medication Orders Hydrocodone Bitart/Acetaminophen (Freedom 325-10 Mg) 1 - 2 tab PO Q4H PRN PRN Reason: Pain Last Admin: 12/09/18 07:43 Dose: 2 tab Admin: 12/09/18 03:23 Dose: 1 tab Admin: 12/08/18 23:08 Dose: 2 tab Admin: 12/08/18 15:18 Dose: 2 tab Al Hydroxide/Mg Hydroxide (Mag-Al Plus) 30 ml PO Q4H PRN PRN Reason: Indigestion Aspirin (Aspirin) 325 mg PO BID ETELVINA Atorvastatin Calcium (Lipitor) 40 mg PO BEDTIME [facility] Last Admin: 12/08/18 20:08 Dose: Not Given Bisacodyl (Dulcolax) 10 mg RECTAL DAILY PRN PRN Reason: Constipation Celecoxib (Celebrex) 200 mg PO BID ETELVINA Cetirizine HCl (Zyrtec) 10 mg PO DAILY PRN PRN Reason: Allergies Diphenhydramine HCl (Benadryl) 25 - 50 mg PO Q6H PRN PRN Reason: Itching Docusate Sodium (Colace) 100 mg PO BID PRN PRN Reason: Constipation Famotidine (Pepcid) 40 mg IVPUSH ONARRIVE [facility] Last Admin: 12/08/18 08:27 Dose: 40 mg Famotidine (Pepcid) 40 mg PO DAILY ETELVINA Acetaminophen 1,000 mg/ Premix 100 mls @ 400 mls/hr IV ONARRIVE [facility] Last Admin: 12/08/18 08:27 Dose: 400 mls/hr Ropivacaine 49.25 ml/Ketorolac Tromethamine 30 mg/Epinephrine HCl 0.5 mg/ Clonidine HCl 80 mcg/ Sodium Chloride 75 mls @ 50 mls/sec INJECT ASDIRECTED [facility] Lactated Ringer's (Ringers, Lactated) 1,000 mls @ 100 mls/hr IV ASDIRECTED [facility] Last Admin: 12/08/18 22:53 Dose: 100 mls/hr Infusion: 12/08/18 18:29 Dose: 100 mls/hr Admin: 12/08/18 08:29 Dose: 100 mls/hr Tranexamic Acid 2,000 mg/ (Sodium Chloride) 120 mls @ 600 mls/hr IV ASDIRECTED [facility] Clindamycin Phosphate 600 mg/ (Premix) 50 mls @ 150 mls/hr IV ONCALL [facility] Last Admin: 12/08/18 09:24 Dose: 150 mls/hr Ketorolac Tromethamine (Toradol) 15 mg IVPUSH ONARRIVE [facility] Last Admin: 12/08/18 08:28 Dose: 15 mg Morphine Sulfate (Morphine Sulfate) 1 - 3 mg IV Q3H PRN PRN Reason: Pain Multivitamins/Minerals/Vitamin C (Tab-A-Jimbo) 1 tab PO DAILY [facility] Omeprazole (Omeprazole) 40 mg PO DAILY PRN PRN Reason: Heartburn Ondansetron HCl (Zofran) 4 mg IVPUSH Q6H PRN PRN Reason: Nausea/Vomiting Doxylamine Succinate (25 Mg) 1 each PO BEDTIME PRN PRN Reason: Insomnia Cyclosporine 1 Drop 1 each EYEBOTH BID [facility] Last Admin: 12/08/18 23:14 Dose: 1 each Tafluprost/Pf [ Zioptan 0.0015% Eye Drops] 1 Drop 1 each EYEBOTH BEDTIME [facility] Last Admin: 12/08/18 23:14 Dose: 1 each Fluticasone/ (Vilanterol 1 Puff) 1 each INH DAILY [facility] Mirabegron [ (Myrbetriq] 50 Mg) 1 each PO QAM ETELVINA Polyethylene Glycol (Miralax) 17 gm PO DAILY [facility] Scopolamine (Transderm-Scop) 1.5 mg TRDERM ONARRIVE [facility] Last Admin: 12/08/18 08:26 Dose: 1.5 mg Sodium Chloride (Saline Flush) 10 ml FLUSH ASDIRECTED PRN PRN Reason: Keep Vein Open Sodium Chloride (Saline Flush) 2.5 ml FLUSH ASDIRECTED PRN PRN Reason: Keep Vein Open Spironolactone (Aldactone) 50 mg PO DAILY ETELVINA - Assessment Assessment (Free Text/Narrative):: POD#1 L TKA - Plan Plan (Free Text/Narrative):: DC IV fluids - saline lock IV DC ruvalcaba DC COUNTER FORMER - morphine IV prn breakthrough pain Freedom 10/325 for pain control ASA 325mg PO BID as DVT prophylaxis will change dressing to long aquacel prior to discharge PT today pt has wheeled walker or script has been written anticipate up to 72 hour stay for IV pain medication and continued physical therapy pt will require FWW for safe mobility/stability until increased strength/gait independence s/p TKA - has been safely mobilizing in room with FWW. d/ch medications written <Carmen Verdugo R - Last Filed: 12/11/18 08:52> - Patient Data Vitals - Most Recent: Last Vital Signs Temp 97.5 F 12/10/18 08:00 Pulse 81 12/10/18 08:00 Resp 16 12/10/18 08:00 BP 127/60 12/10/18 08:00 Pulse Ox 92 L 12/10/18 08:00 Med Orders - Current: Current Medications Discontinued Medications Hydrocodone Bitart/Acetaminophen (Freedom 325-10 Mg) 1 - 2 tab PO Q4H PRN PRN Reason: Pain Last Admin: 12/09/18 14:06 Dose: 2 tab Hydrocodone Bitart/Acetaminophen (Freedom 325-5 Mg) 1 - 2 tab PO Q4H PRN PRN Reason: Pain Last Admin: 12/10/18 08:26 Dose: 1 tab Al Hydroxide/Mg Hydroxide (Mag-Al Plus) 30 ml PO Q4H PRN PRN Reason: Indigestion Aspirin (Aspirin) 325 mg PO BID [facility] Last Admin: 12/10/18 08:28 Dose: 325 mg Atorvastatin Calcium (Lipitor) 40 mg PO BEDTIME [facility] Last Admin: 12/09/18 20:16 Dose: Not Given Bisacodyl (Dulcolax) 10 mg RECTAL DAILY PRN PRN Reason: Constipation Celecoxib (Celebrex) 200 mg PO BID [facility] Last Admin: 12/10/18 08:26 Dose: 200 mg Cetirizine HCl (Zyrtec) 10 mg PO DAILY PRN PRN Reason: Allergies Diphenhydramine HCl (Benadryl) 25 - 50 mg PO Q6H PRN PRN Reason: Itching Docusate Sodium (Colace) 100 mg PO BID PRN PRN Reason: Constipation Famotidine (Pepcid) 40 mg IVPUSH ONARRIVE [facility] Last Admin: 12/08/18 08:27 Dose: 40 mg Famotidine (Pepcid) 40 mg PO DAILY [facility] Last Admin: 12/10/18 08:25 Dose: 40 mg Fentanyl (Sublimaze) Confirm Administered Dose 100 mcg .ROUTE .[facility] ONE Stop: 12/08/18 07:41 Acetaminophen 1,000 mg/ Premix 100 mls @ 400 mls/hr IV ONARRIVE [facility] Last Admin: 12/08/18 08:27 Dose: 400 mls/hr Ropivacaine 49.25 ml/Ketorolac Tromethamine 30 mg/Epinephrine HCl 0.5 mg/ Clonidine HCl 80 mcg/ Sodium Chloride 75 mls @ 50 mls/sec INJECT ASDIRECTED [facility] Lactated Ringer's (Ringers, Lactated) 1,000 mls @ 100 mls/hr IV ASDIRECTED [facility] Last Admin: 12/08/18 22:53 Dose: 100 mls/hr Tranexamic Acid 2,000 mg/ (Sodium Chloride) 120 mls @ 600 mls/hr IV ASDIRECTED [facility] Clindamycin Phosphate 600 mg/ (Premix) 50 mls @ 150 mls/hr IV ONCALL [facility] Last Admin: 12/08/18 09:24 Dose: 150 mls/hr Lidocaine HCl (Xylocaine-Mpf 1%) Confirm Administered Dose 5 mls @ as directed .ROUTE .[facility] ONE Stop: 12/08/18 07:41 Clindamycin Phosphate 600 mg/ (Premix) 50 mls @ 100 mls/hr IV Q8H [facility] Stop: 12/09/18 02:59 Last Admin: 12/09/18 03:24 Dose: 100 mls/hr Ketorolac Tromethamine (Toradol) 15 mg IVPUSH ONARRIVE [facility] Last Admin: 12/08/18 08:28 Dose: 15 mg Ketorolac Tromethamine (Toradol) 15 mg IVPUSH Q6H [facility] Stop: 12/09/18 05:00 Last Admin: 12/08/18 23:07 Dose: 15 mg Midazolam HCl (Versed 1 Mg/Ml) Confirm Administered Dose 2 mg .ROUTE .[facility] ONE Stop: 12/08/18 07:41 Morphine Sulfate (Morphine Asphalt Paver Operator 30 Mg In 30 Ml) 30 mg IV ASDIRECTED PRN; Protocol PRN Reason: Pain Stop: 12/09/18 06:00 Last Admin: 12/08/18 12:26 Dose: 30 mg Morphine Sulfate (Morphine Sulfate) 1 - 3 mg IV Q3H PRN PRN Reason: Pain Morphine Sulfate (Morphine) 1 - 3 mg IV Q3H PRN PRN Reason: Pain Last Admin: 12/09/18 20:38 Dose: 1 mg Multivitamins/Minerals/Vitamin C (Tab-A-Jimbo) 1 tab PO DAILY ETELVINA Last Admin: 12/10/18 08:28 Dose: 1 tab Omeprazole (Omeprazole) 40 mg PO DAILY PRN PRN Reason: Heartburn Ondansetron HCl (Zofran) 4 mg IVPUSH Q6H PRN PRN Reason: Nausea/Vomiting Last Admin: 12/09/18 17:56 Dose: 4 mg Doxylamine Succinate (25 Mg) 1 each PO BEDTIME PRN PRN Reason: Insomnia Cyclosporine 1 Drop 1 each EYEBOTH BID ETELVINA Last Admin: 12/10/18 08:29 Dose: 1 each Tafluprost/Pf [ Zioptan 0.0015% Eye Drops] 1 Drop 1 each EYEBOTH BEDTIME ETELVINA Last Admin: 12/09/18 20:09 Dose: Not Given Fluticasone/ (Vilanterol 1 Puff) 1 each INH DAILY [facility] Last Admin: 12/10/18 08:29 Dose: 1 each Mirabegron [ (Myrbetriq] 50 Mg) 1 each PO QAM ETELVINA Last Admin: 12/10/18 08:29 Dose: Not Given Polyethylene Glycol (Miralax) 17 gm PO DAILY [facility] Last Admin: 12/10/18 08:25 Dose: 17 gm Propofol (Diprivan 20 Ml) Confirm Administered Dose 600 mg .ROUTE .STK-MED ONE Stop: 12/08/18 07:41 Scopolamine (Transderm-Scop) 1.5 mg TRDERM ONARRIVE [facility] Last Admin: 12/08/18 08:26 Dose: 1.5 mg Sodium Chloride (Saline Flush) 10 ml FLUSH ASDIRECTED PRN PRN Reason: Keep Vein Open Sodium Chloride (Saline Flush) 2.5 ml FLUSH ASDIRECTED PRN PRN Reason: Keep Vein Open Spironolactone (Aldactone) 50 mg PO DAILY [facility] Last Admin: 12/10/18 08:26 Dose: 50 mg Tramadol HCl (Ultram) 50 - 100 mg PO Q6H PRN PRN Reason: Pain Last Admin: 12/10/18 11:47 Dose: 50 mg Tranexamic Acid (Cyklokapron) Confirm Administered Dose 2,000 mg .ROUTE .STK- MED ONE Stop: 12/08/18 16:31 - Plan Plan (Free Text/Narrative):: Late entry: Patient seen and examined at 1800. Agree with above note. Having some pain, improved with morphine. Slow with PT. Hgb stable. Will plan to keep an additional day for further PT and pain management. [email or web address]
[2018-12-09] MEDS: Celecoxib 100 MG Cap PO SCH ×2 (08:49→20:11)
[2018-12-09] MEDS: Famotidine 20 MG Tab PO SCH (08:49)
[2018-12-09] MEDS: Multivitamin Tab PO SCH (08:49)
[2018-12-09] MEDS: Spironolactone 25 MG Tab PO SCH (08:49)
[2018-12-09] MEDS: Aspirin 325 MG Tab PO SCH ×2 (08:50→20:11)
[2018-12-09] MEDS: Polyethylene Glycol 3350 Powder 17 GM Packet PO SCH (08:52)
[2018-12-09] MEDS: Fluticasone/Vilanterol 1 PUFF INH SCH (08:56)
[2018-12-09] MEDS: Cyclosporine 1 DROP EYEBOTH SCH ×2 (08:56→20:09)
[2018-12-09] MEDS: Mirabegron [Myrbetriq] 50 MG PO SCH (08:56)
[2018-12-09] MEDS ORDERED: Acetaminophen/HYDROcodone 325-5 MG Tab PO PRN (16:40)
[2018-12-09] MEDS: Morphine 4 MG/ML Syringe IV PRN ×2 (17:14→20:38)
[2018-12-09] MEDS: traMADol 50 MG Tab PO PRN ×2 (18:07→23:43)
[2018-12-09] MEDS: Tafluprost/Pf [Zioptan 0.0015% Eye Drops] 1 DROP EYEBOTH SCH (20:09)
[2018-12-09] MEDS: atorvaSTATin 40 MG Tab PO SCH ×2 (20:11→20:16)
--- NOTE | 2018-12-10 04:54 | PCM48HPAN ---
Post Anesthesia Note - EVALUATION WITHIN 48HRS OF ANESTHETIC Vital Signs in Normal Range: Yes Patient Participated in Evaluation: Yes Respiratory Function Stable: Yes Airway Patent: Yes Cardiovascular Function Stable: Yes Hydration Status Stable: Yes Pain Control Satisfactory: Yes Nausea and Vomiting Control Satisfactory: Yes Mental Status Recovered: Yes Pulse Rate: 68 Resp Rate: 16 Blood Pressure: 133/50
[2018-12-10] MEDS: traMADol 50 MG Tab PO PRN ×2 (05:50→11:47)
[2018-12-10] MEDS: Polyethylene Glycol 3350 Powder 17 GM Packet PO SCH (08:25)
[2018-12-10] MEDS: Famotidine 20 MG Tab PO SCH (08:25)
[2018-12-10] MEDS: Celecoxib 100 MG Cap PO SCH (08:26)
[2018-12-10] MEDS: Spironolactone 25 MG Tab PO SCH (08:26)
[2018-12-10] MEDS: Aspirin 325 MG Tab PO SCH (08:28)
[2018-12-10] MEDS: Multivitamin Tab PO SCH (08:28)
[2018-12-10] MEDS: Mirabegron [Myrbetriq] 50 MG PO SCH (08:29)
[2018-12-10] MEDS: Fluticasone/Vilanterol 1 PUFF INH SCH (08:29)
[2018-12-10] MEDS: Cyclosporine 1 DROP EYEBOTH SCH (08:29)
[2018-12-10 10:00] VITALS: BP 127/60
--- NOTE | 2018-12-10 13:14 | PCM.SURGPN ---
- General Info Date of Service: 12/10/18 Date of Surgery/Procedure: 12/08/18 POD#: 2 Functional Status: Reports: Pain Controlled, Tolerating Diet, Ambulating, Urinating - Review of Systems General: Reports: No Symptoms Pulmonary: Reports: No Symptoms Cardiovascular: Reports: No Symptoms Gastrointestinal: Reports: No Symptoms Systems Review Comment:: pt up to chair for breakfast tolerating PO intake well pain better controlled today with Milmay 5/325 and Ultram, reports less respiratory depression as well would like to go home today - Patient Data Vitals - Most Recent: Last Vital Signs Temp 97.5 F 12/10/18 08:00 Pulse 81 12/10/18 08:00 Resp 16 12/10/18 08:00 BP 127/60 12/10/18 08:00 Pulse Ox 92 L 12/10/18 08:00 Weight - Most Recent: 80.739 kg I&O - Last 24 Hours: Intake & Output 12/09/18 12/10/18 12/10/18 22:59 06:59 14:59 Intake Total 1040 1040 Output Total 225 300 Balance 815 740 Lab Results Last 24 Hrs: Laboratory Results - last 24 hr 12/10/18 Range/Units 05:20 Hgb 11.4 L (12.0-16.0) g/dL Hct 34.2 L (36.0-46.0) % Med Orders - Current: Current Medications Discontinued Medications Hydrocodone Bitart/Acetaminophen (Milmay 325-10 Mg) 1 - 2 tab PO Q4H PRN PRN Reason: Pain Last Admin: 12/09/18 14:06 Dose: 2 tab Hydrocodone Bitart/Acetaminophen (Milmay 325-5 Mg) 1 - 2 tab PO Q4H PRN PRN Reason: Pain Last Admin: 12/10/18 08:26 Dose: 1 tab Al Hydroxide/Mg Hydroxide (Mag-Al Plus) 30 ml PO Q4H PRN PRN Reason: Indigestion Aspirin (Aspirin) 325 mg PO BID [facility] Last Admin: 12/10/18 08:28 Dose: 325 mg Atorvastatin Calcium (Lipitor) 40 mg PO BEDTIME [facility] Last Admin: 12/09/18 20:16 Dose: Not Given Bisacodyl (Dulcolax) 10 mg RECTAL DAILY PRN PRN Reason: Constipation Celecoxib (Celebrex) 200 mg PO BID [facility] Last Admin: 12/10/18 08:26 Dose: 200 mg Cetirizine HCl (Zyrtec) 10 mg PO DAILY PRN PRN Reason: Allergies Diphenhydramine HCl (Benadryl) 25 - 50 mg PO Q6H PRN PRN Reason: Itching Docusate Sodium (Colace) 100 mg PO BID PRN PRN Reason: Constipation Famotidine (Pepcid) 40 mg IVPUSH ONARRIVE [facility] Last Admin: 12/08/18 08:27 Dose: 40 mg Famotidine (Pepcid) 40 mg PO DAILY [facility] Last Admin: 12/10/18 08:25 Dose: 40 mg Fentanyl (Sublimaze) Confirm Administered Dose 100 mcg .ROUTE .STK-MED ONE Stop: 12/08/18 07:41 Acetaminophen 1,000 mg/ Premix 100 mls @ 400 mls/hr IV ONARRIVE [facility] Last Admin: 12/08/18 08:27 Dose: 400 mls/hr Ropivacaine 49.25 ml/Ketorolac Tromethamine 30 mg/Epinephrine HCl 0.5 mg/ Clonidine HCl 80 mcg/ Sodium Chloride 75 mls @ 50 mls/sec INJECT ASDIRECTED [facility] Lactated Ringer's (Ringers, Lactated) 1,000 mls @ 100 mls/hr IV ASDIRECTED [facility] Last Admin: 12/08/18 22:53 Dose: 100 mls/hr Tranexamic Acid 2,000 mg/ (Sodium Chloride) 120 mls @ 600 mls/hr IV ASDIRECTED [facility] Clindamycin Phosphate 600 mg/ (Premix) 50 mls @ 150 mls/hr IV ONCALL [facility] Last Admin: 12/08/18 09:24 Dose: 150 mls/hr Lidocaine HCl (Xylocaine-Mpf 1%) Confirm Administered Dose 5 mls @ as directed .ROUTE .STK-MED ONE Stop: 12/08/18 07:41 Clindamycin Phosphate 600 mg/ (Premix) 50 mls @ 100 mls/hr IV Q8H [facility] Stop: 12/09/18 02:59 Last Admin: 12/09/18 03:24 Dose: 100 mls/hr Ketorolac Tromethamine (Toradol) 15 mg IVPUSH ONARRIVE [facility] Last Admin: 12/08/18 08:28 Dose: 15 mg Ketorolac Tromethamine (Toradol) 15 mg IVPUSH Q6H [facility] Stop: 12/09/18 05:00 Last Admin: 12/08/18 23:07 Dose: 15 mg Midazolam HCl (Versed 1 Mg/Ml) Confirm Administered Dose 2 mg .ROUTE .STK-MED ONE Stop: 12/08/18 07:41 Morphine Sulfate (Morphine Global Compensation Manager 30 Mg In 30 Ml) 30 mg IV ASDIRECTED PRN; Protocol PRN Reason: Pain Stop: 12/09/18 06:00 Last Admin: 12/08/18 12:26 Dose: 30 mg Morphine Sulfate (Morphine Sulfate) 1 - 3 mg IV Q3H PRN PRN Reason: Pain Morphine Sulfate (Morphine) 1 - 3 mg IV Q3H PRN PRN Reason: Pain Last Admin: 12/09/18 20:38 Dose: 1 mg Multivitamins/Minerals/Vitamin C (Tab-A-Jimbo) 1 tab PO DAILY [facility] Last Admin: 12/10/18 08:28 Dose: 1 tab Omeprazole (Omeprazole) 40 mg PO DAILY PRN PRN Reason: Heartburn Ondansetron HCl (Zofran) 4 mg IVPUSH Q6H PRN PRN Reason: Nausea/Vomiting Last Admin: 12/09/18 17:56 Dose: 4 mg Doxylamine Succinate (25 Mg) 1 each PO BEDTIME PRN PRN Reason: Insomnia Cyclosporine 1 Drop 1 each EYEBOTH BID [facility] Last Admin: 12/10/18 08:29 Dose: 1 each Tafluprost/Pf [ Zioptan 0.0015% Eye Drops] 1 Drop 1 each EYEBOTH BEDTIME [facility] Last Admin: 12/09/18 20:09 Dose: Not Given Fluticasone/ (Vilanterol 1 Puff) 1 each INH DAILY [facility] Last Admin: 12/10/18 08:29 Dose: 1 each Mirabegron [ (Myrbetriq] 50 Mg) 1 each PO QAM [facility] Last Admin: 12/10/18 08:29 Dose: Not Given Polyethylene Glycol (Miralax) 17 gm PO DAILY [facility] Last Admin: 12/10/18 08:25 Dose: 17 gm Propofol (Diprivan 20 Ml) Confirm Administered Dose 600 mg .ROUTE .STK-MED ONE Stop: 12/08/18 07:41 Scopolamine (Transderm-Scop) 1.5 mg TRDERM ONARRIVE [facility] Last Admin: 12/08/18 08:26 Dose: 1.5 mg Sodium Chloride (Saline Flush) 10 ml FLUSH ASDIRECTED PRN PRN Reason: Keep Vein Open Sodium Chloride (Saline Flush) 2.5 ml FLUSH ASDIRECTED PRN PRN Reason: Keep Vein Open Spironolactone (Aldactone) 50 mg PO DAILY [facility] Last Admin: 12/10/18 08:26 Dose: 50 mg Tramadol HCl (Ultram) 50 - 100 mg PO Q6H PRN PRN Reason: Pain Last Admin: 12/10/18 11:47 Dose: 50 mg Tranexamic Acid (Cyklokapron) Confirm Administered Dose 2,000 mg .ROUTE .STK- MED ONE Stop: 12/08/18 16:31 - Exam Wound/Incisions: Healing Well. No: Drainage, Erythema General: Alert, Oriented Cardiovascular: Regular Rate, Regular Rhythm Extremities: Other (exam LLE - incision c/d/vickie intact, at/ehl/gastroc 5/5, dp 2+, sensation intact distally) Physical Findings Comment:: vss, afeb hgb 11.4 - Problem List Review Problem List Initiated/Reviewed/Updated: Yes - Assessment Assessment (Free Text/Narrative):: POD#2 L TKA acute posthemorrhagic anemia - Plan Plan (Free Text/Narrative):: dressing changed to aquacel will d/ch to home today after PT d/ch summary #[id number]
--- NOTE | 2018-12-11 07:51 | DISCH ---
DATE OF DISCHARGE: 12/10/2018 PRIMARY CARE PHYSICIAN: Shaji PCP ADMITTING DIAGNOSES: Degenerative joint disease, left knee, tricompartmental. OTHER MEDICAL DIAGNOSES: 1. Glaucoma. 2. Asthma. 3. Hyperlipidemia. 4. Chronic kidney disease. DISCHARGE DIAGNOSES: 1. Degenerative joint disease, left knee, tricompartmental. 2. Glaucoma. 3. Asthma. 4. Hyperlipidemia. 5. Chronic kidney disease. 6. Acute post hemorrhagic anemia. BRIEF HISTORY: Kateryna is a 78-year-old female, who has had progressive complaints of left knee pain. She has tried and failed conservative treatment. At that time, surgical treatment was recommended. On December 08, 2018, the patient underwent a left total knee arthroplasty using patient-specific instrumentation. This was done by Dr. Carmen Verdugo. This was under spinal anesthesia with sedation. Estimated blood loss was 50 mL. Tourniquet time was 39 minutes. There were no known complications. Upon completion of the procedure, the patient was transferred to the PACU and subsequently to Med/Surg for postoperative care. HOSPITAL COURSE: Postoperatively, the patient did well. She received 2 doses of antibiotics postoperatively for a total of 24 hours of antibiotic coverage. Her pain was controlled with a combination of oral and IV pain medications. Physical therapy followed her through her hospital stay. Her vital signs have been stable. She has been afebrile. Her hemoglobin on the morning of December 10 was 11.4. At this time, the patient has been doing well. Her pain is controlled with oral pain medications only. She is tolerating oral intake. She is ambulating well with a wheeled walker. She feels comfortable with discharge to home. DISCHARGE MEDICATIONS: 1. Oxford 5/325 mg. 2. Ultram 50 mg. 3. Celebrex 200 mg. 4. Colace 100 mg. 5. MiraLAX. 6. Aspirin 325 mg. For complete discharge instructions, please refer back to Dr. Verdugo's postoperative total knee arthroplasty patient instructions. For complete medication reconciliation, please refer back to the patient's EHR. Should she have questions or concerns prior to followup, she has been advised to contact the clinic. JUAN HAMM /[id number]
== END 2018-12-10 11:50 | disposition home or self-care (01) | DRG 470 ==
LOC: MW.SDS 07:16 → MW.MS 07:17
PROVIDERS: ADMIT Orthopaedic Surgery; ATTEND Orthopaedic Surgery
PROC: 0SRD0J9 Replacement of Left Knee Joint with Synthetic Substitute, Cemented, Open Approach (ICD-10-PCS; principal; 2018-12-08)
DX: M17.12 Unilateral primary osteoarthritis, left knee (principal); D62 Acute posthemorrhagic anemia; M94.262 Chondromalacia, left knee; M25.762 Osteophyte, left knee; J45.909 Unspecified asthma, uncomplicated; E78.5 Hyperlipidemia, unspecified; I12.9 Hypertensive chronic kidney disease with stage 1 through stage 4 chronic kidney disease, or unspecified chronic kidney disease; N18.3 Chronic kidney disease, stage 3 (moderate); H40.9 Unspecified glaucoma; E78.00 Pure hypercholesterolemia, unspecified; K21.9 Gastro-esophageal reflux disease without esophagitis; G89.29 Other chronic pain; E21.0 Primary hyperparathyroidism; N39.3 Stress incontinence (female) (male); M47.9 Spondylosis, unspecified; E66.9 Obesity, unspecified; Z68.33 Body mass index [BMI] 33.0-33.9, adult; Z90.710 Acquired absence of both cervix and uterus; Z98.1 Arthrodesis status; Z87.891 Personal history of nicotine dependence; Z88.1 Allergy status to other antibiotic agents; Z88.8 Allergy status to other drugs, medicaments and biological substances; Z86.711 Personal history of pulmonary embolism; Z79.899 Other long term (current) drug therapy; Z79.82 Long term (current) use of aspirin
CPT/HCPCS: 36415; 73560-26-LT; 73560-LT; 85014; 85018; 86850; 86900; 86901; 97110-GP; 97116-GP; 97161-GP; 97530-GP; A9270-GY; C1713; C1776; J0131; J1885; J2001; J2250; J2270; J2274; J2405; J2704; J3010; J3490; J7120

== ENCOUNTER 2020-05-31 06:19 | Emergency (ER) | payer MEDICARE, OTHER ==
[2020-05-31] MEDS ORDERED: Cetirizine 10 MG Tab PO ONE (06:35)
--- NOTE | 2020-05-31 06:52 | EDM.PDOC ---
<Baltazar Alcantar - Last Filed: 05/31/20 06:49> ED HPI GENERAL MEDICAL PROBLEM - General Chief Complaint: ENT Problem Stated Complaint: SINUSES DRAINING- CAN'T BREATHE Time Seen by Provider: 05/31/20 06:33 - History of Present Illness INITIAL COMMENTS - FREE TEXT/NARRATIVE: HISTORY AND PHYSICAL: History of present illness: This 80-year-old female with a past medical history of pulmonary embolism, hyper tension, hyperlipidemia presents to the emergency department complaining of the sensation of shortness of breath, runny nose, sore throat, and not being able to sleep at night secondary to the sensation of postnasal drip and shortness of breath. She feels worse when she is wearing her mask. We do have pandemic COVID-19 in the community. She was tested for COVID-19 about a week ago and reports that it was negative. She denies having a fever. It is noted that she has a slightly low oxygen saturation in the emergency department triage. Room air saturation was 92%. Patient denies production of sputum. She states that she has come to the emergency department before and received some type of medication that has made her postnasal drip go away but she cannot remember what it is. Questioning her for her history she does not remember that she has had a pulmonary embolism in the past. She does not know why she was taken off warfarin. She has difficulty remembering portions of her medical history and surgical history. Review of systems: A 10-point review of systems, other than pertinent positives and negatives as stated per HPI, is otherwise negative. Past medical history: As per history of present illness and as reviewed below otherwise noncontributory. Surgical history: As per history of present illness and as reviewed below otherwise noncontributory. Social history: No reported history of drug or alcohol abuse. Family history: As per history of present illness and as reviewed below otherwise noncontributory. Physical exam: VITAL SIGNS: Reviewed. GENERAL: Appears anxious about her condition. No tripoding or accessory muscle use. Mild tachypnea especially after walking from the check-in area to the triage area. HEAD: No signs of head trauma. EYES: Pupils are equal. Extraocular motions intact. EARS: Hearing grossly intact. MOUTH: Oropharynx is normal. NECK: No adenopathy, no JVD. CHEST: Chest with clear breath sounds bilaterally. No wheezes, rales, or rhonchi. CARDIAC: Regular rate and rhythm. Normal S1 and S2, without murmurs, gallops, or rubs. VASCULAR: Peripheral pulses normal and equal in all extremities. ABDOMEN: Soft, without detectable tenderness. No sign of distention. No rebound or guarding, and no masses palpated. MUSCULOSKELETAL: Good range of motion of all major joints. Extremities without clubbing, cyanosis or edema. NEUROLOGIC EXAM: Alert and oriented x 3. No focal sensory or motor deficits. Speech normal. Follows commands. PSYCHIATRIC: Mood normal. SKIN: No rash or lesions. Initial Differential Diagnosis & Plan: Shortness of breath: Differential diagnosis includes asthma, COPD, pneumonia, congestive heart failure, anemia, thyroid disease, acidosis, pulmonary embolism, myocardial infarction, sepsis. Also very suspicious for COVID-19. Unlikely to be pulmonary embolism given that the patient has a history of PE but no tachycardia. She denies any chest pain. I will obtain a d-dimer that can be used as age-adjusted. She is not currently anticoagulated. Most likely this is secondary to a viral illness or allergies. I will turn over the care and follow-up on the work-up to my oncoming colleague in the morning. Definitive disposition and diagnosis as appropriate pending reevaluation and review of above. - Related Data Allergies Allergy/AdvReac Type Severity Reaction Status Date / Time amoxicillin [Amoxicillin] Allergy Swelling Verified 05/31/20 06:31 atorvastatin [From Lipitor] Allergy Swelling Verified 05/31/20 06:31 pregabalin [From Lyrica] Allergy Cannot Verified 05/31/20 06:31 Remember benzochlorozine Allergy Swollen Uncoded 05/31/20 06:31 Eyes Home Meds: Home Meds Spironolactone 50 mg PO DAILY 01/18/14 [History] Omeprazole 40 mg PO DAILY PRN 10/11/14 [History] Multivitamin [Multivitamins] 1 tab PO DAILY 09/19/18 [History] Tafluprost/Pf [Zioptan 0.0015% Eye Drops] 1 drop EYEBOTH BEDTIME 09/19/18 [History] atorvaSTATin [Lipitor] 40 mg PO BEDTIME 09/19/18 [History] cycloSPORINE [Restasis] 1 drop EYEBOTH BID 09/19/18 [History] Calcium Carbonate/Vitamin D3 [Calcium 600-Vit D3 800 Tab] 1 tab PO DAILY 12/05/18 [History] Doxylamine Succinate [Unisom Sleep Aid] 25 mg PO BEDTIME PRN 12/05/18 [History] Fluticasone/Vilanterol [Breo Ellipta 200-25 MCG Inhalation Kit] 1 puff INH DAILY 12/05/18 [History] Mirabegron [Myrbetriq] 50 mg PO QAM 12/05/18 [History] Multivitamin with Minerals [Hair, Skin and Nails] 1 tab PO DAILY 12/05/18 [History] Cetirizine [ZyrTEC] 10 mg PO DAILY PRN 12/08/18 [History] Acetaminophen/HYDROcodone [Larue 325-5 MG] 1 - 2 tab PO Q4H PRN #60 tablet 12/10/18 [Rx] Aspirin 325 mg PO BID #60 tablet 12/10/18 [Rx] Celecoxib [CeleBREX] 200 mg PO DAILY #30 cap 12/10/18 [Rx] Docusate Sodium [Colace] 100 mg PO BID PRN #60 cap 12/10/18 [Rx] polyethylene glycoL 3350 [MiraLAX] 17 gm PO DAILY #30 packet 12/10/18 [Rx] traMADol [Ultram] 50 - 100 mg PO Q6H PRN #60 tablet 12/10/18 [Rx] Fluticasone Propionate [Flonase] 16 gm .XX DAILY 28 Days #1 bottle 05/31/20 [Rx] Past Medical History HEENT History: Reports: Cataract, Hard of Hearing, Impaired Vision Cardiovascular History: Reports: High Cholesterol Respiratory History: Reports: Asthma Other Respiratory History: states PE 5 years ago- took anticoagulants Gastrointestinal History: Reports: GERD CLINICAL DATA ASSISTANT History: Reports: Musculoskeletal History: Reports: Back Pain, Chronic, Fracture, Osteoarthritis Other Musculoskeletal History: hx of fx arm Neurological History: Reports: None Psychiatric History: Reports: None Endocrine/Metabolic History: Reports: Obesity/BMI 30+ Insulin Pump Model and Transmission Engineer: None Hematologic History: Reports: None Immunologic History: Reports: None Oncologic (Cancer) History: Reports: None Dermatologic History: Reports: None - Infectious Disease History Infectious Disease History: Reports: Chicken Pox - Past Surgical History Head Surgeries/Procedures: Reports: None HEENT Surgical History: Reports: Cataract Surgery GI Surgical History: Reports: Appendectomy Female Surgical History: Reports: Hysterectomy, Salpingo-Oophorectomy Neurological Surgical History: Reports: C-Spine, Spinal Fusion Other Neurological Surgeries/Procedures: fusion of C3-4-5 (no hardware) Musculoskeletal Surgical History: Reports: Arthroscopic Knee, Carpal Tunnel Social & Family History - Family History Family Medical History: Noncontributory - Tobacco Use Smoking Status *Q: Former Smoker Used Tobacco, but Quit: No - Caffeine Use Caffeine Use: Reports: Coffee - Recreational Drug Use Recreational Drug Use: No Departure - Departure Disposition: Home, Self-Care 01 Clinical Impression: URI, acute - Discharge Information Prescriptions: Fluticasone Propionate [Flonase] 16 gm .XX DAILY 28 Days #1 bottle Instructions: Viral Respiratory Infection, [id number] Referrals: Rory Moran MD [Primary Care Provider] - Forms: ED Department Discharge Additional Instructions: The following information is given to patients seen in the emergency department who are being discharged to home. This information is to outline your options for follow-up care. We provide all patients seen in our emergency department with a follow-up referral. The need for follow-up, as well as the timing and circumstances, are variable depending upon the specifics of your emergency department visit. If you don't have a primary care physician on staff, we will provide you with a referral. We always advise you to contact your personal physician following an emergency department visit to inform them of the circumstance of the visit and for follow-up with them and/or the need for any referrals to a consulting specialist. The emergency department will also refer you to a specialist when appropriate. This referral assures that you have the opportunity for follow-up care with a specialist. All of these measure are taken in an effort to provide you with optimal care, which includes your follow-up. Under all circumstances we always encourage you to contact your private physician who remains a resource for coordinating your care. When calling for follow-up care, please make the office aware that this follow-up is from your recent emergency room visit. If for any reason you are refused follow-up, please contact the [facility] Emergency Department at and asked to speak to the emergency department charge nurse. Please follow up with your primary care physician. If you do not have a primary care physician, see below: [facility] [address] [place] [address] [facility] [address] [place] [address] Sepsis Event Note (ED) - Evaluation Sepsis Screening Result: No Definite Risk <Manish Garay - Last Filed: 05/31/20 09:15> ED ROS ENT - Review of Systems Review Of Systems: Comprehensive ROS is negative, except as noted in HPI. ED EXAM, ENT - Physical Exam Exam: See Below Exam Limited By: No Limitations General Appearance: Alert, WD/WN, No Apparent Distress Head: Atraumatic, Normocephalic Respiratory/Chest: No Respiratory Distress, No Accessory Muscle Use Extremities: Normal Inspection Neurological: Alert Psychiatric: Normal Affect, Normal Mood Skin: Warm, Dry, Intact, Normal Color Course - Vital Signs Last Recorded V/S: Last Vital Signs Temp 98 F 05/31/20 07:25 Pulse 70 05/31/20 08:54 Resp 16 05/31/20 08:54 BP 174/82 H 05/31/20 08:54 Pulse Ox 96 05/31/20 08:54 - Orders/Labs/Meds Orders: Active Orders 24 hr Category Date Time Status EKG 12 Lead [EKG Documentation Completion] [RC] STAT Care 05/31/20 06:38 Active CORONAVIRUS COVID-19 PCR PHL Stat Lab 05/31/20 06:35 Ordered Labs: Laboratory Tests 05/31/20 05/31/20 05/31/20 Range/Units 07:09 07:09 07:09 WBC 5.35 (4.0-11.0) K/uL RBC 4.26 L (4.30-5.90) M/uL Hgb 14.9 (12.0-16.0) g/dL Hct 44.5 (36.0-46.0) % MCV 104.5 H (80.0-98.0) fL MCH 35.0 H (27.0-32.0) pg MCHC 33.5 (31.0-37.0) g/dL RDW Std Deviation 47.6 (28.0-62.0) fl RDW Coeff of Loc 13 (11.0-15.0) % Plt Count 188 (150-400) K/uL MPV 10.70 (7.40-12.00) fL Neut % (Auto) 43.3 L (48.0-80.0) % Lymph % (Auto) 42.8 H (16.0-40.0) % Geary % (Auto) 10.3 (0.0-15.0) % Eos % (Auto) 3.4 (0.0-7.0) % Baso % (Auto) 0.2 (0.0-1.5) % Neut # (Auto) 2.3 (1.4-5.7) K/uL Lymph # (Auto) 2.3 (0.6-2.4) K/uL Geary # (Auto) 0.6 (0.0-0.8) K/uL Eos # (Auto) 0.2 (0.0-0.7) K/uL Baso # (Auto) 0.0 (0.0-0.1) K/uL Nucleated RBC % 0.0 /100WBC Nucleated RBCs # 0 K/uL INR D-Dimer, Quantitative 0.86 H (0.0-0.50) mg/L FEU Sodium 141 (136-145) mmol/L Potassium 4.3 (3.5-5.1) mmol/L Chloride 107 (98-107) mmol/L Carbon Dioxide 24.2 (21.0-32.0) mmol/L BUN 16 (7.0-18.0) mg/dL Creatinine 1.1 H (0.6-1.0) mg/dL Est Cr Clr Drug Dosing 33.34 mL/min Estimated GFR (MDRD) 48.0 ml/min Glucose 94 (74-106) mg/dL Calcium 9.9 (8.5-10.1) mg/dL Total Bilirubin 1.1 H (0.2-1.0) mg/dL AST 27 (15-37) IU/L ALT 43 (14-63) IU/L Alkaline Phosphatase 97 (46-116) U/L Troponin I < 0.050 (0.000-0.056) ng/mL Total Protein 6.8 (6.4-8.2) g/dL Albumin 3.8 (3.4-5.0) g/dL Globulin 3.0 (2.6-4.0) g/dL Albumin/Globulin Ratio 1.3 (0.9-1.6) SARS CoV-2 RNA Rapid LACHO (NEGATIVE) 05/31/20 05/31/20 Range/Units 07:09 07:29 WBC (4.0-11.0) K/uL RBC (4.30-5.90) M/uL Hgb (12.0-16.0) g/dL Hct (36.0-46.0) % MCV (80.0-98.0) fL MCH (27.0-32.0) pg MCHC (31.0-37.0) g/dL RDW Std Deviation (28.0-62.0) fl RDW Coeff of Loc (11.0-15.0) % Plt Count (150-400) K/uL MPV (7.40-12.00) fL Neut % (Auto) (48.0-80.0) % Lymph % (Auto) (16.0-40.0) % Geary % (Auto) (0.0-15.0) % Eos % (Auto) (0.0-7.0) % Baso % (Auto) (0.0-1.5) % Neut # (Auto) (1.4-5.7) K/uL Lymph # (Auto) (0.6-2.4) K/uL Geary # (Auto) (0.0-0.8) K/uL Eos # (Auto) (0.0-0.7) K/uL Baso # (Auto) (0.0-0.1) K/uL Nucleated RBC % /100WBC Nucleated RBCs # K/uL INR 1.00 D-Dimer, Quantitative (0.0-0.50) mg/L FEU Sodium (136-145) mmol/L Potassium (3.5-5.1) mmol/L Chloride (98-107) mmol/L Carbon Dioxide (21.0-32.0) mmol/L BUN (7.0-18.0) mg/dL Creatinine (0.6-1.0) mg/dL Est Cr Clr Drug Dosing mL/min Estimated GFR (MDRD) ml/min Glucose (74-106) mg/dL Calcium (8.5-10.1) mg/dL Total Bilirubin (0.2-1.0) mg/dL AST (15-37) IU/L ALT (14-63) IU/L Alkaline Phosphatase (46-116) U/L Troponin I (0.000-0.056) ng/mL Total Protein (6.4-8.2) g/dL Albumin (3.4-5.0) g/dL Globulin (2.6-4.0) g/dL Albumin/Globulin Ratio (0.9-1.6) SARS CoV-2 RNA Rapid LACHO NEGATIVE (NEGATIVE) Meds: Medications Discontinued Medications Generic Name Dose Route Start Last Admin Trade Name Freq PRN Reason Stop Dose Admin Cetirizine HCl 10 mg 05/31/20 06:35 05/31/20 07:27 Zyrtec PO 05/31/20 06:36 10 mg ONETIME ONE Administration Iopamidol 75 ml 05/31/20 08:34 05/31/20 08:35 Isovue Multipack-370 (76%) IVPUSH 05/31/20 08:35 75 ml ONETIME STA Administration - Re-Assessments/Exams Free Text/Narrative Re-Assessment/Exam: 05/31/20 07:00 Patient care transitioned from night-team ED physician pending lab/imaging results. 05/31/20 07:25 CXR unremarkable. Will f/u labs including D-dimer to screen for PE and disposition accordingly. 05/31/20 07:58 Patient's D-dimer is elevated even after adjusting for age; will get CTA chest to r/o PE 05/31/20 09:00 CTA is negative for PE or other acute pathology. Will d/c with medications for post-nasal drip and w/ PMD f/u Departure - Departure Time of Disposition: 09:08 Condition: Good Sepsis Event Note (ED) - Focused Exam Vital Signs: Vital Signs Temp Pulse Resp BP Pulse Ox 05/31/20 08:54 70 16 174/82 H 96 05/31/20 07:25 98 F 75 16 151/74 H 92 L 05/31/20 06:31 97.1 F 90 18 165/78 H 92 L
--- NOTE | 2020-05-31 07:23 | CR ---
INDICATION: Cough. FINDINGS: PA and lateral chest x-rays show a normal cardiac silhouette. Atherosclerotic and tortuous aorta. The lungs show minimal left basilar atelectasis. Sharp pleural margins. No pneumothorax. Stabilization hardware in the cervical spine. IMPRESSION: Minimal left basilar atelectasis. No other focal pulmonary opacities. Dictated by Tyler Dave MD @ 05/31/2020 7:22:23 AM Dictated by: Tyler Dave MD @ 05/31/2020 07:22:35 (Electronically Signed)
[2020-05-31 07:41] LABS: BLOOD UREA NITROGEN,BUN 16 mg/dL (7.0-18.0); CARBON DIOXIDE,CO2 24.2 mmol/L (21.0-32.0); CHLORIDE,CL 107 mmol/L (98-107); GLUCOSE RANDOM 94 mg/dL (74-106); POTASSIUM,K 4.3 mmol/L (3.5-5.1); SODIUM,NA 141 mmol/L (136-145)
[2020-05-31] MEDS ORDERED: Iopamidol 755 MG/ML 500 ML Multipack Bottle IVPUSH STA (08:34)
--- NOTE | 2020-05-31 08:48 | CT ---
CT chest Technique: Multiple axial sections through the chest were obtained. Intravenous contrast was utilized. Study has been performed as a pulmonary angiogram protocol. Comparison: No prior chest imaging is available. Findings: Pulmonary arteries are well opacified. No filling defects are seen to indicate pulmonary embolism. Aorta shows atherosclerotic calcification without aneurysm. Atherosclerotic calcification also noted within the branch vessels. Mediastinum shows no adenopathy. Coronary artery calcification is noted. Heart size is slightly enlarged. Low density finding noted within the dome of the right lobe of the liver which is compatible with cyst measuring 1.1 cm. Other visualized upper abdominal structures shows nothing acute. Slight parenchymal density within both lung bases most likely due to mild fibrosis. No acute parenchymal process is appreciated within either lung. No pleural effusions are seen. Bone window setting shows previous cervical spine surgery. No acute osseous finding is appreciated. Impression: 1. No findings of pulmonary embolism. 2. Other findings as described above and believed to be incidental. Nothing acute is suspected. Diagnostic code #2 This report was dictated in MDT
[2020-05-31 14:04] VITALS: BP 147/87; PULSE 88
== END 2020-05-31 09:43 | disposition home or self-care (01) ==
LOC: MW.ED 06:19
DX: J06.9 Acute upper respiratory infection, unspecified (principal); R79.1 Abnormal coagulation profile; E66.9 Obesity, unspecified; J45.909 Unspecified asthma, uncomplicated; E78.00 Pure hypercholesterolemia, unspecified; K21.9 Gastro-esophageal reflux disease without esophagitis; Z88.0 Allergy status to penicillin; Z20.828 Contact with and (suspected) exposure to other viral communicable diseases; Z87.891 Personal history of nicotine dependence; Z88.8 Allergy status to other drugs, medicaments and biological substances; Z79.82 Long term (current) use of aspirin; Z79.899 Other long term (current) drug therapy; Z90.710 Acquired absence of both cervix and uterus; Z90.49 Acquired absence of other specified parts of digestive tract; Z68.31 Body mass index [BMI] 31.0-31.9, adult
CPT/HCPCS: 36415; 71046; 71046-26; 71275; 71275-26; 80053; 84484; 85025; 85379; 85610; 93005; 99284-25; A9270-GY; Q9967; U0002

== ENCOUNTER 2023-07-21 07:33 | Emergency (ER) | payer MEDICARE ==
[2023-07-21] MEDS ORDERED: Sodium Chloride 0.9% 10 ML Syringe FLUSH PRN (08:11)
[2023-07-21] MEDS ORDERED: Sodium Chloride 0.9% 2.5 ML Syringe FLUSH PRN (08:11)
[2023-07-21] MEDS ORDERED: fentaNYL/Normal Saline 2,500 MCG in Premix Bag 1 BAG IV PRN (08:30)
[2023-07-21 08:31] LABS: BASOPHILS ABSOLUTE AUTO 0.02 K/uL (0.00-0.20); BASOPHILS PERCENT AUTO 0.4 % (0.0-1.0); EOSINOPHILS ABSOLUTE AUTO 0.08 K/uL (0.00-0.45); EOSINOPHILS PERCENT AUTO 1.6 % (0.0-6.0); HEMATOCRIT 38.5 % (37.0-47.0); HEMOGLOBIN 13.4 g/dL (12.0-16.0); IMMATURE GRAN ABSOLUTE AUTO 0.01 K/uL (0.00-0.05); IMMATURE GRAN PERCENT AUTO 0.2 % (0.0-0.4); LYMPHOCYTES PERCENT AUTO 42.7 % (24.0-44.0); MEAN CORPUSCULAR HEMOGLOBIN 35.3 pg (28.0-32.0); MEAN CORPUSCULAR HGB CONC 34.8 g/dL (32.0-36.0); MEAN CORPUSCULAR VOLUME 101.3 fL (83.0-99.0); MEAN PLATELET VOLUME 9.9 fL (9.4-12.3); MONOCYTES ABSOLUTE AUTO 0.59 K/uL (0.00-0.80); NEUTROPHILS ABSOLUTE AUTO 2.12 K/uL (1.80-7.70); NEUTROPHILS PERCENT AUTO 43.1 % (41.0-71.0); PLATELET COUNT,PLT 163 K/uL (150-400); WHITE BLOOD CELL COUNT,WBC 4.92 K/uL (3.9-11.3)
[2023-07-21 08:57] LABS: ALBUMIN 3.4 g/dL (3.4-5.0); BILIRUBIN TOTAL 1.3 mg/dL (0.2-1.0); CALCIUM 10.3 mg/dL (8.5-10.1); CREATININE 1.2 mg/dL (0.6-1.0); EST CRCL DRUG DOSING (CG) 29.08 mL/min; POTASSIUM,K 4.3 mmol/L (3.5-5.1); PROTEIN TOTAL,TP 6.8 g/dL (6.4-8.2)
[2023-07-21 09:20] LABS: APPEARANCE,URINE CLEAR; BILIRUBIN,URINE NEGATIVE (NEGATIVE); COLOR,URINE YELLOW; GLUCOSE,URINE NEGATIVE (NEGATIVE); KETONES,URINE NEGATIVE (NEGATIVE); LEUKOCYTE ESTERASE,URINE NEGATIVE (NEGATIVE); NITRITE,URINE NEGATIVE (NEGATIVE); OCCULT BLOOD,URINE NEGATIVE (NEGATIVE); PROTEIN,URINE NEGATIVE (NEGATIVE); UROBILINOGEN,URINE 0.2 EU/dL (<2.0)
[2023-07-21] MEDS ORDERED: HYDROmorphone 1 MG/ML Syringe IVPUSH ONE (15:06)
[2023-07-21] MEDS ORDERED: Iopamidol 755 MG/ML 500 ML Multipack Bottle IVPUSH STA (17:17)
[2023-07-21 19:24] VITALS: BP 171/90; PULSE 81
== END 2023-07-21 19:22 | disposition home or self-care (01) ==
LOC: MW.ED 07:33
DX: I10 Essential (primary) hypertension (principal); R55 Syncope and collapse; E78.00 Pure hypercholesterolemia, unspecified; J45.909 Unspecified asthma, uncomplicated; K21.9 Gastro-esophageal reflux disease without esophagitis; M19.90 Unspecified osteoarthritis, unspecified site; E66.9 Obesity, unspecified; Z68.29 Body mass index [BMI] 29.0-29.9, adult; Z87.891 Personal history of nicotine dependence; Z88.0 Allergy status to penicillin; Z88.8 Allergy status to other drugs, medicaments and biological substances; Z79.82 Long term (current) use of aspirin; Z79.899 Other long term (current) drug therapy; Z20.822 Contact with and (suspected) exposure to COVID-19
CPT/HCPCS: 36415; 71045; 71275; 80053; 81003; 83880; 84484; 85025; 85379; 93005; 96374; 99284; J1170; Q9967; U0002; 93010

== ENCOUNTER 2023-09-03 06:31 | Day surgery (SDC) | payer MEDICARE ==
[~2023-09-03 06:31] MED LIST changes: -Acetaminophen 1,000 MG in Premix Bag 1 BAG IV SCH; -Famotidine 20 MG/2 ML SDV IVPUSH SCH; -Ketorolac 15 MG/ML SDV IVPUSH SCH; +Lactated Ringers 1,000 ML IV SCH; -Scopolamine 1.5 MG Transdermal Patch TRDERM SCH; +Sodium Chloride 0.9% 10 ML Syringe FLUSH PRN; +Sodium Chloride 0.9% 2.5 ML Syringe FLUSH PRN; +Sodium Chloride 0.9% 20 ML SDV IV PRN
[2023-09-03] MEDS ORDERED: propofoL 50 ML ONE (07:47)
[2023-09-03] MEDS ORDERED: Propofol 200 MG/20 ML SDV ONE ×2 (08:41→08:53)
[2023-09-03] MEDS ORDERED: cefOXitin 1 GM Vial ONE (08:45)
[2023-09-03 09:24] VITALS: PULSE 83
[2023-09-03 10:02] VITALS: BP 120/60
== END 2023-09-03 09:51 | disposition home or self-care (01) ==
LOC: MW.SDS 06:31
PROVIDERS: ATTEND Surgery
DX: D12.0 Benign neoplasm of cecum (principal); D12.3 Benign neoplasm of transverse colon; K29.50 Unspecified chronic gastritis without bleeding; K21.00 Gastro-esophageal reflux disease with esophagitis, without bleeding; K57.30 Diverticulosis of large intestine without perforation or abscess without bleeding; K29.80 Duodenitis without bleeding; K44.9 Diaphragmatic hernia without obstruction or gangrene; K26.9 Duodenal ulcer, unspecified as acute or chronic, without hemorrhage or perforation; K25.9 Gastric ulcer, unspecified as acute or chronic, without hemorrhage or perforation; K80.20 Calculus of gallbladder without cholecystitis without obstruction; I11.9 Hypertensive heart disease without heart failure; J45.909 Unspecified asthma, uncomplicated; E78.00 Pure hypercholesterolemia, unspecified; K21.9 Gastro-esophageal reflux disease without esophagitis; E66.9 Obesity, unspecified; Z68.30 Body mass index [BMI] 30.0-30.9, adult; Z79.82 Long term (current) use of aspirin; Z79.899 Other long term (current) drug therapy; Z88.0 Allergy status to penicillin
CPT/HCPCS: 43239; 45380; 45385; J0694; J2704; J7120; 00813; 88305; 99100

== ENCOUNTER 2023-10-15 08:51 | Day surgery (SDC) | payer MEDICARE ==
[~2023-10-15 08:51] MED LIST changes: -Lactated Ringers 1,000 ML IV SCH; +Morphine 10 MG/ML SDV ONE; +Propofol 200 MG/20 ML SDV ONE; -Sodium Chloride 0.9% 10 ML Syringe FLUSH PRN; -Sodium Chloride 0.9% 2.5 ML Syringe FLUSH PRN; -Sodium Chloride 0.9% 20 ML SDV IV PRN; +fentaNYL 250 MCG/5 ML SDV ONE
[2023-10-15] MEDS ORDERED: Ropivacaine 0.5% 5 MG/ML 30 ML SDV ONE (08:52)
[2023-10-15] MEDS ORDERED: Lidocaine 2% 11 ML Jelly Filled Syringe ONE (08:58)
[2023-10-15] MEDS ORDERED: Phenylephrine HCl 0.5 MG/5 ML AMP ONE (08:59)
[2023-10-15] MEDS ORDERED: ePHEDrine 50 MG/ML SDV ONE (08:59)
[2023-10-15] MEDS ORDERED: Glycopyrrolate 0.2 MG/ML SDV ONE (08:59)
[2023-10-15] MEDS ORDERED: Dexamethasone 4 MG/ML 5 ML MDV ONE (09:01)
[2023-10-15] MEDS ORDERED: Ondansetron 4 MG/2 ML SDV ONE (09:01)
[2023-10-15] MEDS ORDERED: droPERidol 5 MG/2 ML SDV IVPUSH PRN (09:03)
[2023-10-15] MEDS ORDERED: Ondansetron 4 MG/2 ML SDV IVPUSH PRN (09:03)
[2023-10-15] MEDS ORDERED: Metoclopramide 10 MG/2 ML SDV IVPUSH PRN (09:03)
[2023-10-15] MEDS ORDERED: Naloxone 0.4 MG/ML SDV IVPUSH PRN (09:03)
[2023-10-15] MEDS ORDERED: Albuterol 0.083% 2.5 MG/3 ML Neb Soln NEB PRN (09:03)
[2023-10-15] MEDS ORDERED: Morphine 2 MG/ML SYRINGE IVPUSH PRN (09:03)
[2023-10-15] MEDS ORDERED: HYDROmorphone 1 MG/ML Syringe IVPUSH PRN (09:03)
[2023-10-15] MEDS ORDERED: Bupivacaine 0.5% 30 ML SDV ONE (09:31)
[2023-10-15] MEDS: Lactated Ringers 1,000 ML IV SCH (09:39)
[2023-10-15] MEDS: Ciprofloxacin in D5W 400 MG in Premix Bag 1 BAG IV ONE (09:42)
[2023-10-15] MEDS ORDERED: Indocyanine Green 25 MG SDV ONE (10:52)
[2023-10-15] MEDS ORDERED: Water For Injection, Sterile 40 ML ONE (10:52)
[2023-10-15] MEDS: metroNIDAZOLE/Normal Saline 250 MG in Premix Bag 1 BAG IV ONE (10:53)
[2023-10-15] MEDS ORDERED: Sugammadex Sodium 200 MG/2 ML VIAL IV ONE (11:52)
[2023-10-15] MEDS: fentaNYL 50 MCG/ML SDV IVPUSH PRN (12:22)
[2023-10-15] MEDS ORDERED: Rocuronium Bromide 50 MG/5 ML Syringe ONE (12:56)
[2023-10-15 14:48] VITALS: BP 147/82; PULSE 76
== END 2023-10-15 14:45 | disposition home or self-care (01) ==
LOC: MW.SDS 08:51
PROVIDERS: ATTEND Surgery
DX: K80.10 Calculus of gallbladder with chronic cholecystitis without obstruction (principal); K44.9 Diaphragmatic hernia without obstruction or gangrene; K21.9 Gastro-esophageal reflux disease without esophagitis; K63.5 Polyp of colon; K57.90 Diverticulosis of intestine, part unspecified, without perforation or abscess without bleeding; Z79.899 Other long term (current) drug therapy; Z88.0 Allergy status to penicillin; Z88.6 Allergy status to analgesic agent; Z88.8 Allergy status to other drugs, medicaments and biological substances
CPT/HCPCS: 47562; A9270; J0131; J0665; J0744; J1100; J1836; J2270; J2405; J2704; J2795; J3010; J3490; J7120; 88304; J2371

== ENCOUNTER 2024-11-05 05:33 | Emergency (ER) | payer MEDICARE ==
[2024-11-05 05:51] LABS: BASOPHILS ABSOLUTE AUTO 0.02 K/uL (0.00-0.20); BASOPHILS PERCENT AUTO 0.4 % (0.0-1.0); EOSINOPHILS ABSOLUTE AUTO 0.16 K/uL (0.00-0.45); EOSINOPHILS PERCENT AUTO 2.8 % (0.0-6.0); HEMATOCRIT 39.7 % (37.0-47.0); HEMOGLOBIN 13.7 g/dL (12.0-16.0); IMMATURE GRAN ABSOLUTE AUTO 0.01 K/uL (0.00-0.05); IMMATURE GRAN PERCENT AUTO 0.2 % (0.0-0.4); LYMPHOCYTES ABSOLUTE AUTO 3.02 K/uL (1.00-4.80); LYMPHOCYTES PERCENT AUTO 53.5 % (24.0-44.0); MEAN CORPUSCULAR HEMOGLOBIN 35.5 pg (28.0-32.0); MEAN CORPUSCULAR HGB CONC 34.5 g/dL (32.0-36.0); MEAN CORPUSCULAR VOLUME 102.8 fL (83.0-99.0); MEAN PLATELET VOLUME 10.3 fL (9.4-12.3); MONOCYTES ABSOLUTE AUTO 0.54 K/uL (0.00-0.80); MONOCYTES PERCENT AUTO 9.6 % (0.0-8.0); NEUTROPHILS ABSOLUTE AUTO 1.89 K/uL (1.80-7.70); NEUTROPHILS PERCENT AUTO 33.5 % (41.0-71.0); PLATELET COUNT,PLT 157 K/uL (150-400); RED BLOOD CELL COUNT 3.86 M/uL (4.10-5.30); WHITE BLOOD CELL COUNT,WBC 5.64 K/uL (3.9-11.3)
[2024-11-05 06:31] LABS: A/G RATIO 1.1 (0.9-1.6); ALBUMIN 3.5 g/dL (3.4-5.0); BILIRUBIN TOTAL 1.2 mg/dL (0.2-1.0); CARBON DIOXIDE,CO2 23.5 mmol/L (21.0-32.0); CREATININE 1.3 mg/dL (0.6-1.0); EST CRCL DRUG DOSING (CG) 26.39 mL/min; MAGNESIUM 1.6 mg/dL (1.8-2.4); PHOSPHORUS 3.2 mg/dL (2.6-4.7); POTASSIUM,K 4.3 mmol/L (3.5-5.1); PROTEIN TOTAL,TP 6.6 g/dL (6.4-8.2); TSH ULTRASENSITIVE 8.19 uIU/mL (0.36-3.74)
[2024-11-05 06:58] LABS: T4 FREE 1.07 ng/dL (0.76-1.46)
[2024-11-05] MEDS: Magnesium Sulf/Wat 2 GM/50 mL 2 GM in Premix Bag 1 BAG IV ONE (07:08)
[2024-11-05 08:25] VITALS: BP 162/90; PULSE 75
== END 2024-11-05 08:24 | disposition home or self-care (01) ==
LOC: MW.ED 05:33
DX: R00.2 Palpitations (principal); I10 Essential (primary) hypertension; J45.909 Unspecified asthma, uncomplicated; E78.00 Pure hypercholesterolemia, unspecified; E66.9 Obesity, unspecified; Z88.0 Allergy status to penicillin; Z88.8 Allergy status to other drugs, medicaments and biological substances; Z79.82 Long term (current) use of aspirin; Z79.899 Other long term (current) drug therapy; Z90.49 Acquired absence of other specified parts of digestive tract; Z90.710 Acquired absence of both cervix and uterus; Z68.32 Body mass index [BMI] 32.0-32.9, adult
CPT/HCPCS: 36415; 71045; 80053; 83735; 84100; 84439; 84443; 84484; 85025; 93005; 96365; 99285; J3475

== ENCOUNTER 2024-12-17 06:25 | Inpatient (IN) | payer MEDICARE ==
[2024-12-17] MEDS ORDERED: Ropivacaine 49.25 ML, Ketorolac 30 MG, EPINEPHrine 0.5 MG, cloNIDine 80 MCG in Sodium C... INJECT SCH (07:00)
[2024-12-17] MEDS: Lactated Ringers 1,000 ML IV SCH (07:10)
[2024-12-17] MEDS: Famotidine 20 MG/2 ML SDV IVPUSH SCH (07:19)
[2024-12-17] MEDS ORDERED: Ropivacaine 0.5% 5 MG/ML 30 ML SDV ONE (07:23)
[2024-12-17] MEDS ORDERED: fentaNYL 100 MCG/2 ML SDV ONE (07:24)
[2024-12-17] MEDS ORDERED: Ketamine HCL/NACL, ISO-OSM 50 MG/5 ML Syringe ONE (07:24)
[2024-12-17] MEDS ORDERED: EPINEPHrine 1 MG/1 ML Amp ONE (07:24)
[2024-12-17] MEDS ORDERED: propofoL 500 MG/50 ML 50 ML ONE (07:24)
[2024-12-17] MEDS ORDERED: dexmedeTOMIDine HCl 200 MCG/2 ML SDV ONE (07:24)
[2024-12-17] MEDS ORDERED: Lidocaine 2% 5 ML SDV ONE (07:29)
[2024-12-17] MEDS ORDERED: Ondansetron 4 MG/2 ML SDV ONE (08:02)
[2024-12-17] MEDS ORDERED: fentaNYL 50 MCG/ML SDV IVPUSH PRN (08:15)
[2024-12-17] MEDS ORDERED: Albuterol 0.083% 2.5 MG/3 ML Neb Soln NEB PRN (08:15)
[2024-12-17] MEDS ORDERED: Metoclopramide 10 MG/2 ML SDV IVPUSH PRN (08:15)
[2024-12-17] MEDS ORDERED: HYDROmorphone 1 MG/ML Syringe IVPUSH PRN (08:15)
[2024-12-17] MEDS ORDERED: Morphine 2 MG/ML SYRINGE IVPUSH PRN (08:15)
[2024-12-17] MEDS ORDERED: Phenylephrine HCl In 0.9% NaCl 1 MG/10 ML Syringe IVPUSH PRN (08:15)
[2024-12-17] MEDS ORDERED: Ondansetron 4 MG/2 ML SDV IVPUSH PRN ×2 (08:15→12:06)
[2024-12-17] MEDS ORDERED: Naloxone 0.4 MG/ML SDV IVPUSH PRN (08:15)
[2024-12-17] MEDS ORDERED: Tranexamic Acid 1,000 MG/10 ML Vial ONE (08:17)
[2024-12-17] MEDS ORDERED: ceFAZolin 2 GM Vial ONE (08:18)
[2024-12-17] MEDS ORDERED: ePHEDrine 50 MG/ML SDV ONE (08:53)
[2024-12-17] MEDS ORDERED: Propofol 200 MG/20 ML SDV ONE (10:46)
[2024-12-17] MEDS ORDERED: Bisacodyl 10 MG Supp RECTAL PRN (12:06)
[2024-12-17] MEDS ORDERED: diphenhydrAMINE 25 MG Cap PO PRN (12:06)
[2024-12-17] MEDS ORDERED: Sodium Chloride 0.9% 2.5 ML Syringe FLUSH PRN (12:06)
[2024-12-17] MEDS ORDERED: traMADol 50 MG Tab PO PRN (12:06)
[2024-12-17] MEDS ORDERED: Sodium Chloride 0.9% 10 ML Syringe FLUSH PRN (12:06)
[2024-12-17] MEDS: oxyCODONE 5 MG Tab PO PRN ×2 (13:30→15:39)
[2024-12-17] MEDS: Acetaminophen 325 MG Tab PO SCH (13:32)
[2024-12-17] MEDS: ceFAZolin 2 GM in Sodium Chloride 0.9% 50 ML IV SCH ×2 (13:54→21:01)
[2024-12-17] MEDS ORDERED: Albuterol/Ipratropium 3.0-0.5 MG/3 ML Neb Soln NEB PRN (14:21)
[2024-12-17 15:00] LABS: BASOPHILS ABSOLUTE AUTO 0.01 K/uL (0.00-0.20); BASOPHILS PERCENT AUTO 0.1 % (0.0-1.0); EOSINOPHILS ABSOLUTE AUTO 0.15 K/uL (0.00-0.45); EOSINOPHILS PERCENT AUTO 1.6 % (0.0-6.0); HEMOGLOBIN 11.9 g/dL (12.0-16.0); IMMATURE GRAN ABSOLUTE AUTO 0.02 K/uL (0.00-0.05); IMMATURE GRAN PERCENT AUTO 0.2 % (0.0-0.4); LYMPHOCYTES ABSOLUTE AUTO 2.84 K/uL (1.00-4.80); LYMPHOCYTES PERCENT AUTO 30.3 % (24.0-44.0); MEAN CORPUSCULAR HEMOGLOBIN 35.4 pg (28.0-32.0); MEAN CORPUSCULAR VOLUME 104.2 fL (83.0-99.0); MEAN PLATELET VOLUME 10.8 fL (9.4-12.3); MONOCYTES ABSOLUTE AUTO 0.56 K/uL (0.00-0.80); NEUTROPHILS PERCENT AUTO 61.8 % (41.0-71.0); PLATELET COUNT,PLT 140 K/uL (150-400); RED BLOOD CELL COUNT 3.36 M/uL (4.10-5.30); WHITE BLOOD CELL COUNT,WBC 9.38 K/uL (3.9-11.3)
[2024-12-17 15:16] LABS: CARBON DIOXIDE,CO2 23.5 mmol/L (21.0-32.0); CREATININE 1.2 mg/dL (0.6-1.0); EST CRCL DRUG DOSING (CG) 28.59 mL/min; MAGNESIUM 1.3 mg/dL (1.8-2.4); POTASSIUM,K 4.2 mmol/L (3.5-5.1)
[2024-12-17] MEDS: Magnesium Sulf/Wat 4 GM/100 mL 4 GM in Premix Bag 1 BAG IV ONE (17:17)
[2024-12-17] MEDS: Aspirin 325 MG Tab PO SCH (17:26)
[2024-12-17] MEDS ORDERED: Doxylamine Succinate 25 MG Tab PO PRN (21:00)
[2024-12-17] MEDS: Docusate Sodium 100 MG Cap PO SCH (21:01)
[2024-12-17] MEDS: atorvaSTATin 40 MG Tab PO SCH (21:01)
[2024-12-18] MEDS: Tranexamic Acid in NACL,ISO-OS 1,000 MG in Premix Bag 1 BAG IV ONE (04:52)
[2024-12-18 06:33] LABS: HEMATOCRIT 30.2 % (37.0-47.0); HEMOGLOBIN 10.3 g/dL (12.0-16.0)
[2024-12-18 07:00] LABS: CALCIUM 9.1 mg/dL (8.5-10.1); CARBON DIOXIDE,CO2 24.1 mmol/L (21.0-32.0); CREATININE 1.3 mg/dL (0.6-1.0); EST CRCL DRUG DOSING (CG) 26.39 mL/min; MAGNESIUM 2.5 mg/dL (1.8-2.4); POTASSIUM,K 4.4 mmol/L (3.5-5.1)
[2024-12-18] MEDS ORDERED: Fluticasone NASAL Spray 16 GM Bottle NASBOTH PRN (09:00)
[2024-12-18] MEDS: Metoprolol Succinate 25 MG Tab.ER PO SCH (09:13)
[2024-12-18] MEDS: Spironolactone 25 MG Tab PO SCH (09:14)
[2024-12-18] MEDS: Polyethylene Glycol 3350 Powder 17 GM Packet PO SCH (09:14)
[2024-12-18] MEDS: Multivitamin Tab PO SCH (09:14)
[2024-12-18] MEDS: Calcium Carbonate 500 MG Tablet PO SCH (09:14)
[2024-12-18] MEDS: Famotidine 20 MG Tab PO SCH (09:14)
[2024-12-19 06:36] LABS: HEMOGLOBIN 11.4 g/dL (12.0-16.0)
[2024-12-19 06:53] LABS: CALCIUM 10.1 mg/dL (8.5-10.1); CARBON DIOXIDE,CO2 24.1 mmol/L (21.0-32.0); CREATININE 1.4 mg/dL (0.6-1.0); EST CRCL DRUG DOSING (CG) 24.5 mL/min; MAGNESIUM 1.9 mg/dL (1.8-2.4); POTASSIUM,K 4.5 mmol/L (3.5-5.1)
[2024-12-19] MEDS: traMADol 50 MG Tab PO PRN (08:08)
[2024-12-19] MEDS: Simethicone 80 MG Tab.Chew PO PRN (11:55)
[2024-12-19 13:44] VITALS: BP 132/65; PULSE 81
== END 2024-12-19 13:30 | disposition home or self-care (01) | DRG 468 ==
LOC: MW.SDS 06:25 → MW.MS 12:06
PROVIDERS: ADMIT Orthopaedic Surgery; ATTEND Orthopaedic Surgery
PROC: 0SRD0J9 Replacement of Left Knee Joint with Synthetic Substitute, Cemented, Open Approach (ICD-10-PCS; 2024-12-17)
PROC: 0SPD0JZ Removal of Synthetic Substitute from Left Knee Joint, Open Approach (ICD-10-PCS; principal; 2024-12-17 08:00)
DX: T84.093A Other mechanical complication of internal left knee prosthesis, initial encounter (principal); J44.89 Other specified chronic obstructive pulmonary disease; J45.20 Mild intermittent asthma, uncomplicated; M17.12 Unilateral primary osteoarthritis, left knee; H26.9 Unspecified cataract; E78.00 Pure hypercholesterolemia, unspecified; M81.0 Age-related osteoporosis without current pathological fracture; F10.90 Alcohol use, unspecified, uncomplicated; H91.90 Unspecified hearing loss, unspecified ear; J30.9 Allergic rhinitis, unspecified; H54.7 Unspecified visual loss; M76.32 Iliotibial band syndrome, left leg; G89.29 Other chronic pain; E66.9 Obesity, unspecified; E21.0 Primary hyperparathyroidism; Z90.710 Acquired absence of both cervix and uterus; Z68.30 Body mass index [BMI] 30.0-30.9, adult; Z90.49 Acquired absence of other specified parts of digestive tract; Z98.49 Cataract extraction status, unspecified eye; Z98.890 Other specified postprocedural states; Z90.89 Acquired absence of other organs; Z79.02 Long term (current) use of antithrombotics/antiplatelets; Z79.82 Long term (current) use of aspirin; Z79.1 Long term (current) use of non-steroidal anti-inflammatories (NSAID); Z79.899 Other long term (current) drug therapy; Z88.1 Allergy status to other antibiotic agents; Z88.8 Allergy status to other drugs, medicaments and biological substances; Z87.19 Personal history of other diseases of the digestive system; Z87.81 Personal history of (healed) traumatic fracture; Z98.1 Arthrodesis status; Z87.891 Personal history of nicotine dependence
CPT/HCPCS: 36415; 73560-26-LT; 73560-LT; 80048; 83735; 85014; 85018; 85025; 86850; 86900; 86901; 97110-GP; 97116-GP; 97163-GP; A9270-GY; C1776; J0690; J0735; J1885; J2003; J2405; J2704; J2795; J3010; J3475; J3490; J7120

== ENCOUNTER 2024-12-30 09:27 | Inpatient (IN) | payer MEDICARE ==
[2024-12-30] MEDS ORDERED: Sodium Chloride 0.9% 20 ML SDV IV PRN (09:54)
[2024-12-30] MEDS ORDERED: Sodium Chloride 0.9% 10 ML Syringe FLUSH PRN ×2 (09:54→14:20)
[2024-12-30] MEDS ORDERED: Sodium Chloride 0.9% 2.5 ML Syringe FLUSH PRN ×2 (09:54→14:20)
[2024-12-30 10:29] LABS: BASOPHILS ABSOLUTE AUTO 0.03 K/uL (0.00-0.20); BASOPHILS PERCENT AUTO 0.6 % (0.0-1.0); EOSINOPHILS ABSOLUTE AUTO 0.12 K/uL (0.00-0.45); EOSINOPHILS PERCENT AUTO 2.2 % (0.0-6.0); HEMOGLOBIN 11.2 g/dL (12.0-16.0); IMMATURE GRAN ABSOLUTE AUTO 0.01 K/uL (0.00-0.05); IMMATURE GRAN PERCENT AUTO 0.2 % (0.0-0.4); LYMPHOCYTES ABSOLUTE AUTO 1.55 K/uL (1.00-4.80); LYMPHOCYTES PERCENT AUTO 28.9 % (24.0-44.0); MEAN CORPUSCULAR HEMOGLOBIN 35.3 pg (28.0-32.0); MEAN CORPUSCULAR HGB CONC 33.9 g/dL (32.0-36.0); MEAN CORPUSCULAR VOLUME 104.1 fL (83.0-99.0); MEAN PLATELET VOLUME 9.4 fL (9.4-12.3); MONOCYTES ABSOLUTE AUTO 0.56 K/uL (0.00-0.80); MONOCYTES PERCENT AUTO 10.4 % (0.0-8.0); NEUTROPHILS ABSOLUTE AUTO 3.09 K/uL (1.80-7.70); NEUTROPHILS PERCENT AUTO 57.7 % (41.0-71.0); PLATELET COUNT,PLT 264 K/uL (150-400); RED BLOOD CELL COUNT 3.17 M/uL (4.10-5.30); WHITE BLOOD CELL COUNT,WBC 5.36 K/uL (3.9-11.3)
[2024-12-30] MEDS: Acetaminophen/HYDROcodone 325-5 MG Tab PO ONE (10:33)
[2024-12-30 10:44] LABS: INR 1.03 (0.86-1.11)
[2024-12-30 10:59] LABS: A/G RATIO 0.9 (0.9-1.6); BILIRUBIN TOTAL 1.1 mg/dL (0.2-1.0); CALCIUM 10.1 mg/dL (8.5-10.1); CARBON DIOXIDE,CO2 27.1 mmol/L (21.0-32.0); CREATININE 1.5 mg/dL (0.6-1.0); EST CRCL DRUG DOSING (CG) 22.87 mL/min; MAGNESIUM 1.6 mg/dL (1.8-2.4); POTASSIUM,K 4.1 mmol/L (3.5-5.1); PROTEIN TOTAL,TP 6.3 g/dL (6.4-8.2)
[2024-12-30] MEDS ORDERED: Naloxone 0.4 MG/ML SDV IVPUSH PRN ×2 (12:10→14:30)
[2024-12-30] MEDS ORDERED: Heparin Sodium 5,000 Units/ML Vial IVPUSH ONE (12:26)
[2024-12-30] MEDS: fentaNYL 50 MCG/ML SDV IVPUSH ONE (12:39)
[2024-12-30] MEDS: Magnesium Sulfate 2 GM/50 mL 2 GM in Premix Bag 1 BAG IV ONE (12:40)
[2024-12-30] MEDS: Heparin Sodium/0.45% NaCl 25,000 UNITS/250 ML BAG IV SCH (12:54)
[2024-12-30] MEDS: Heparin Sodium 5,000 Units/ML Vial IVPUSH ONE (12:54)
[2024-12-30] MEDS ORDERED: Bisacodyl 5 MG Tab PO PRN (14:20)
[2024-12-30] MEDS ORDERED: Heparin Sodium 5,000 Units/ML Vial IVPUSH PRN (14:23)
[2024-12-30 14:42] LABS: APPEARANCE,URINE CLEAR; BILIRUBIN,URINE NEGATIVE (NEGATIVE); COLOR,URINE YELLOW; GLUCOSE,URINE NEGATIVE (NEGATIVE); KETONES,URINE TRACE mg/dL (NEGATIVE); LEUKOCYTE ESTERASE,URINE NEGATIVE (NEGATIVE); NITRITE,URINE NEGATIVE (NEGATIVE); OCCULT BLOOD,URINE NEGATIVE (NEGATIVE); PH,URINE 6.5 (5.0-8.0); PROTEIN,URINE NEGATIVE (NEGATIVE); UROBILINOGEN,URINE 0.2 EU/dL (<2.0)
[2024-12-30] MEDS: Metoprolol Succinate 25 MG Tab.ER PO SCH (15:47)
[2024-12-30] MEDS: Spironolactone 25 MG Tab PO SCH (15:49)
[2024-12-30] MEDS: Morphine 2 MG/ML SYRINGE IVPUSH PRN (18:34)
[2024-12-30] MEDS: Docusate Sodium 100 MG Cap PO SCH (22:43)
[2024-12-30] MEDS: Cefadroxil 500 MG Cap PO SCH (22:43)
[2024-12-30] MEDS: atorvaSTATin 40 MG Tab PO SCH (22:43)
[2024-12-30] MEDS: Acetaminophen/HYDROcodone 325-5 MG Tab PO PRN (23:03)
[2024-12-31 06:23] LABS: BASOPHILS ABSOLUTE AUTO 0.02 K/uL (0.00-0.20); BASOPHILS PERCENT AUTO 0.4 % (0.0-1.0); EOSINOPHILS ABSOLUTE AUTO 0.14 K/uL (0.00-0.45); EOSINOPHILS PERCENT AUTO 2.5 % (0.0-6.0); HEMATOCRIT 29.7 % (37.0-47.0); HEMOGLOBIN 10.2 g/dL (12.0-16.0); IMMATURE GRAN ABSOLUTE AUTO 0.02 K/uL (0.00-0.05); IMMATURE GRAN PERCENT AUTO 0.4 % (0.0-0.4); LYMPHOCYTES PERCENT AUTO 43.3 % (24.0-44.0); MEAN CORPUSCULAR HEMOGLOBIN 35.5 pg (28.0-32.0); MEAN CORPUSCULAR HGB CONC 34.3 g/dL (32.0-36.0); MEAN CORPUSCULAR VOLUME 103.5 fL (83.0-99.0); MEAN PLATELET VOLUME 9.7 fL (9.4-12.3); MONOCYTES ABSOLUTE AUTO 0.65 K/uL (0.00-0.80); MONOCYTES PERCENT AUTO 11.7 % (0.0-8.0); NEUTROPHILS ABSOLUTE AUTO 2.31 K/uL (1.80-7.70); NEUTROPHILS PERCENT AUTO 41.7 % (41.0-71.0); PLATELET COUNT,PLT 238 K/uL (150-400); RED BLOOD CELL COUNT 2.87 M/uL (4.10-5.30); WHITE BLOOD CELL COUNT,WBC 5.54 K/uL (3.9-11.3)
[2024-12-31 06:44] LABS: CALCIUM 9.7 mg/dL (8.5-10.1); CARBON DIOXIDE,CO2 26.6 mmol/L (21.0-32.0); CREATININE 1.2 mg/dL (0.6-1.0); EST CRCL DRUG DOSING (CG) 28.59 mL/min; MAGNESIUM 1.9 mg/dL (1.8-2.4); POTASSIUM,K 4.2 mmol/L (3.5-5.1)
[2024-12-31] MEDS: Multivitamin Tab PO SCH (08:23)
[2024-12-31] MEDS: Pantoprazole 40 MG in Sodium Chloride 0.9% 10 ML IVPUSH ONE (17:05)
[2024-12-31] MEDS: Heparin Sodium 5,000 Units/ML Vial IVPUSH ONE (17:20)
[2024-12-31] MEDS: Heparin Sodium/0.45% NaCl 25,000 UNITS/250 ML BAG IV SCH (19:01)
[2024-12-31] MEDS: Albuterol 0.083% 2.5 MG/3 ML Neb Soln NEB PRN (20:05)
[2024-12-31] MEDS: Ondansetron 4 MG/2 ML SDV IVPUSH PRN (20:19)
[2024-12-31] MEDS: Iopamidol 755 MG/ML 500 ML Multipack Bottle IVPUSH ONE (22:37)
[2025-01-01] MEDS: Melatonin 3 MG Tab PO PRN (02:59)
[2025-01-01] MEDS: Pantoprazole 40 MG Tab.CR PO SCH (06:17)
[2025-01-01 06:39] LABS: BASOPHILS ABSOLUTE AUTO 0.03 K/uL (0.00-0.20); BASOPHILS PERCENT AUTO 0.4 % (0.0-1.0); EOSINOPHILS ABSOLUTE AUTO 0.15 K/uL (0.00-0.45); HEMATOCRIT 35.7 % (37.0-47.0); HEMOGLOBIN 11.8 g/dL (12.0-16.0); IMMATURE GRAN ABSOLUTE AUTO 0.03 K/uL (0.00-0.05); IMMATURE GRAN PERCENT AUTO 0.4 % (0.0-0.4); LYMPHOCYTES ABSOLUTE AUTO 2.81 K/uL (1.00-4.80); LYMPHOCYTES PERCENT AUTO 36.6 % (24.0-44.0); MEAN CORPUSCULAR HEMOGLOBIN 34.5 pg (28.0-32.0); MEAN CORPUSCULAR HGB CONC 33.1 g/dL (32.0-36.0); MEAN CORPUSCULAR VOLUME 104.4 fL (83.0-99.0); MEAN PLATELET VOLUME 9.8 fL (9.4-12.3); MONOCYTES ABSOLUTE AUTO 0.73 K/uL (0.00-0.80); MONOCYTES PERCENT AUTO 9.5 % (0.0-8.0); NEUTROPHILS ABSOLUTE AUTO 3.93 K/uL (1.80-7.70); NEUTROPHILS PERCENT AUTO 51.1 % (41.0-71.0); PLATELET COUNT,PLT 253 K/uL (150-400); RED BLOOD CELL COUNT 3.42 M/uL (4.10-5.30); WHITE BLOOD CELL COUNT,WBC 7.68 K/uL (3.9-11.3)
[2025-01-01 06:57] LABS: CALCIUM 10.3 mg/dL (8.5-10.1); CARBON DIOXIDE,CO2 25.1 mmol/L (21.0-32.0); CREATININE 1.3 mg/dL (0.6-1.0); EST CRCL DRUG DOSING (CG) 26.39 mL/min; MAGNESIUM 1.9 mg/dL (1.8-2.4); POTASSIUM,K 4.6 mmol/L (3.5-5.1)
[2025-01-01] MEDS: Heparin Sodium 5,000 Units/ML Vial IVPUSH ONE (07:43)
[2025-01-01] MEDS: Heparin Sodium 5,000 Units/ML Vial ONE (07:49)
[2025-01-01] MEDS: Apixaban 5 MG Tab PO SCH (09:48)
[2025-01-01 11:02] VITALS: BP 128/60; PULSE 70
== END 2025-01-01 11:05 | disposition home or self-care (01) | DRG 301 ==
LOC: MW.ED 09:27 → MW.MS 12:49
PROVIDERS: ADMIT Internal Medicine; ATTEND Internal Medicine
DX: I82.403 Acute embolism and thrombosis of unspecified deep veins of lower extremity, bilateral (principal); I82.433 Acute embolism and thrombosis of popliteal vein, bilateral; J45.20 Mild intermittent asthma, uncomplicated; J45.909 Unspecified asthma, uncomplicated; I10 Essential (primary) hypertension; Z88.0 Allergy status to penicillin; Z96.652 Presence of left artificial knee joint; H91.90 Unspecified hearing loss, unspecified ear; Z90.49 Acquired absence of other specified parts of digestive tract; H26.9 Unspecified cataract; Z87.891 Personal history of nicotine dependence; Z68.30 Body mass index [BMI] 30.0-30.9, adult; M19.90 Unspecified osteoarthritis, unspecified site; E66.9 Obesity, unspecified; E78.00 Pure hypercholesterolemia, unspecified; H54.7 Unspecified visual loss; K21.9 Gastro-esophageal reflux disease without esophagitis; G89.29 Other chronic pain; Z87.81 Personal history of (healed) traumatic fracture; Z68.32 Body mass index [BMI] 32.0-32.9, adult; Z88.1 Allergy status to other antibiotic agents; Z88.5 Allergy status to narcotic agent; Z88.8 Allergy status to other drugs, medicaments and biological substances; Z79.02 Long term (current) use of antithrombotics/antiplatelets; Z79.01 Long term (current) use of anticoagulants; Z79.899 Other long term (current) drug therapy; Z98.890 Other specified postprocedural states; Z98.49 Cataract extraction status, unspecified eye; Z90.710 Acquired absence of both cervix and uterus; Z98.1 Arthrodesis status
CPT/HCPCS: 36415; 71045; 71045-26; 71275; 71275-26; 80048; 80053; 81003; 83735; 83880; 84484; 85025; 85610; 85730; 93005; 93970; 93970-26; 97110-GP; 97161-GP; 99284; 99285; A9270-GY; J1644; J2270; J2405; J2470; J3010; J3475; Q9967